=== PATIENT | male | born 1935 | race Caucasian/White ===

== ENCOUNTER 2019-12-21 10:31 | Observation (INO) | payer MEDICARE, BC ==
[2019-12-21 10:58] LABS: BASOPHILS % (AUTO) 0.4 %; EOSINOPHILS # (AUTO) 0.2 10^3/uL (0.0-0.7); HGB - HEMOGLOBIN 14.1 g/dL (14.0-18.0); LYMPHOCYTES # (AUTO) 0.9 10^3/uL (1.5-3.5); MEAN CORPUSCULAR HEMOGLOBIN 31.5 pg (27.0-31.0); MEAN CORPUSCULAR HGB CONC 35.1 g/dL (32.0-36.0); MEAN CORPUSCULAR VOLUME 89.9 fL (80.0-94.0); MEAN PLATELET VOLUME 10.4 fL (7.4-11.4); MONOCYTES # (AUTO) 0.5 10^3/uL (0.0-1.0); NEUTROPHILS # (AUTO) 5.8 10^3/uL (1.5-6.6); NEUTROPHILS % (AUTO) 78.3 %; PLT - PLATELET COUNT 171 10^3/uL (130-450); RED BLOOD COUNT 4.47 10^6/uL (4.70-6.10); RED CELL DISTRIBUTION WIDTH 12.8 % (12.0-15.0); WHITE BLOOD COUNT 7.4 x10^3/uL (4.8-10.8)
--- NOTE | 2019-12-21 11:07 | XRAY Report ---
Reason: Chest Pain Procedure Date: 12/21/2019 Accession Number: [id number] / [id number] Procedure: XR - Chest 1 View X-Ray CPT Code: 74815 Final Report FULL RESULT: EXAM: CHEST RADIOGRAPHY EXAM DATE: 12/21/2019 10:58 AM. CLINICAL HISTORY: Chest pain. Syncope. COMPARISON: 10/07/2015. TECHNIQUE: 1 view. FINDINGS: Lungs/Pleura: Small triangle hazy opacity medial right lung base, question mildly prominent epicardial fat pad than pulmonary opacity. Lungs are otherwise clear. No pleural effusion or pneumothorax. Mediastinum: Normal heart size. Similar mildly tortuous ectatic aorta. Bones: No acute osseous findings identified. IMPRESSION: 1. Probable mildly prominent right epicardial fat pad than small right basilar infiltrate. 2. Lungs otherwise clear. No heart failure. 3. Senescent aorta. RADIA
[2019-12-21 11:11] LABS: ALBUMIN 4.3 g/dL (3.2-5.5); ALBUMIN/GLOBULIN RATIO 1.7 (1.0-2.2); BILIRUBIN,TOTAL 0.8 mg/dL (0.2-1.0); CALCIUM 9.1 mg/dL (8.5-10.3); CREATININE 1.3 mg/dL (0.6-1.2); TOTAL PROTEIN 6.9 g/dL (6.7-8.2)
--- NOTE | 2019-12-21 11:44 | ED Physician Documentation ---
History of Present Illness - Stated complaint Stated Complaint: DIZZINESS - Chief complaint Chief Complaint: Cardiac - History obtained from History obtained from: Patient - History of Present Illness Timing: Today Pain level max: 0 Pain level now: 0 - Additonal information Additional information: 84-year-old male states that he was at home today when he felt lightheaded dizzy and had a syncopal event. He did not have any chest pain or shortness of breath. Nothing made it better or worse. No changes to his medications. He is on metoprolol and amlodipine. He states his normal heart rate is around. He feels normal now. No recent illnesses. He ate and drink normally this morning. Review of Systems Ten Systems: 10 systems reviewed and negative Constitutional: denies: Fever, Chills Throat: denies: Sore throat Cardiac: denies: Chest pain / pressure, Palpitations, Calf pain Respiratory: denies: Dyspnea, Cough, Hemoptysis, Wheezing : denies: Dysuria, Incontinent Skin: denies: Rash Musculoskeletal: denies: Neck pain, Back pain Neurologic: denies: Headache PD PAST MEDICAL HISTORY - Past Medical History Past Medical History: Yes Cardiovascular: Hypertension, High cholesterol, Coronary artery disease, Angina Respiratory: None Endocrine/Autoimmune: None GI: GERD : None HEENT: None Psych: None Musculoskeletal: Osteoarthritis Derm: Eczema - Past Surgical History General: Appendectomy HEENT: Tonsil/Adenoidectomy Derm: Skin cancer surgery - Present Medications Home Medications: Ambulatory Orders Medication Instructions Recorded Confirmed [place]-3 Fatty Acids [Fish Oil] 300 mg PO DAILY 09/16/16 09/16/16 Vitamin E 1,000 unit PO DAILY 09/16/16 09/16/16 - Allergies Allergies/Adverse Reactions: Allergies Allergy/AdvReac Type Severity Reaction Status Date / Time Penicillins Allergy Rash Verified 09/16/16 11:31 Sulfa (Sulfonamide Allergy Rash Verified 09/16/16 11:31 Antibiotics) - Social History Does the pt smoke?: No Smoking Status: Never smoker Does the pt drink ETOH?: Yes ETOH Use: Wine PD ED PE NORMAL - Vitals Vital signs reviewed: Yes - General General: Alert and oriented X 3, No acute distress, Well developed/nourished - HEENT HEENT: PERRL, Moist mucous membranes - Neck Neck: Supple, no meningeal sign - Cardiac Cardiac: RRR, Strong equal pulses - Respiratory Respiratory: No respiratory distress, Clear bilaterally - Abdomen Abdomen: Soft, Non tender, Non distended - Derm Derm: Warm and dry, No rash - Extremities Extremities: No edema - Neuro Neuro: Alert and oriented X 3 - Psych Psych: Normal mood, Normal affect Results - Vitals Vitals: Vital Signs - 24 hr 12/21/19 12/21/19 12/21/19 10:34 10:57 11:05 Temperature 36.9 C Heart Rate 56 L 44 L 44 L Respiratory 18 16 18 Rate Blood Pressure 163/55 H 174/68 H 96/69 O2 Saturation 98 100 100 12/21/19 11:07 Temperature Heart Rate 44 L Respiratory 16 Rate Blood Pressure 170/70 H O2 Saturation 100 Oxygen O2 Source Room air - EKG (time done) 1046 Rate: Rate (enter#) (48) Rhythm: Sinus bradycardia [place]: Normal Intervals: Normal [place] QRS: Normal Ischemia: Normal ST segments Compare to prior EKG: Old EKG unavailable - Labs Labs: Laboratory Tests 12/21/19 12/21/19 12/21/19 10:53 10:53 10:53 WBC 7.4 RBC 4.47 L Hgb 14.1 Hct 40.2 L MCV 89.9 MCH 31.5 H MCHC 35.1 RDW 12.8 Plt Count 171 MPV 10.4 Neut # (Auto) 5.8 Lymph # (Auto) 0.9 L [place] # (Auto) 0.5 Eos # (Auto) 0.2 Baso # (Auto) 0.0 Absolute Nucleated RBC 0.00 Nucleated RBC % 0.0 Sodium 134 L Potassium 4.2 Chloride 100 L Carbon Dioxide 28 Anion Gap 6.0 BUN 19 Creatinine 1.3 H Estimated GFR (MDRD) 52 L Glucose 110 H Calcium 9.1 Total Bilirubin 0.8 AST 30 ALT 37 Alkaline Phosphatase 66 Troponin I High Sens 4.1 Total Protein 6.9 Albumin 4.3 Globulin 2.6 Albumin/Globulin Ratio 1.7 Lipase 20 L - Rads (name of study) Chest x-ray Radiology: Prelim report reviewed, EMP read contemporaneously, See rad report (Probable mildly prominent right epicardial fat pad, than small right basilar infiltrate. Lungs otherwise clear. No heart failure. Senescent aorta.) PD MEDICAL DECISION MAKING - ED course Complexity details: reviewed results, re-evaluated patient, considered differential, d/w patient, d/w exchange underwriting consultant ED course: Patient with a syncopal event today. No chest pain. No shortness of breath. He is bradycardic, but this appears to be chronic for him and he is asymptomatic here. His heart rate will be in the 40s at rest in bed, but will increase to the upper 50s to 60 with standing. He has no dizziness or chest pain here. We will place him on telemetry for further care. He does see Dr. Diaz, cardiology at [facility]. No history of cardiac stents or bypasses. Discussed the case with Dr. Robertson, hospitalist who accepts This document was made in part using voice recognition software. While efforts are made to proofread this document, sound alike and grammatical errors may occur. Departure - Departure Disposition: ED Place in Observation Clinical Impression: Syncope Qualifiers: Syncope type: unspecified Qualified Code(s): R55 - Syncope and collapse Condition: Stable
[2019-12-21] MEDS ORDERED: ACETAMINOPHEN 325 MG TABLET PO PRN (12:16)
[2019-12-21] MEDS ORDERED: ONDANSETRON 4 MG/2 ML VIAL IVP PRN (12:16)
[2019-12-21] MEDS ORDERED: SODIUM CHLORIDE FLUSH 0.9% 10 ML SYRINGE IVP PRN (12:16)
[2019-12-21] MEDS ORDERED: hydrALAZINE INJ 20 MG/ML VIAL IVP PRN (12:21)
--- NOTE | 2019-12-21 12:23 | HISTORY & PHYSICAL EXAMINATION ---
Chief Complaint - Chief Complaint Chief Complaint: syncope History of Present Illness - Admitted From Admitted From:: ER - History of Present Illness HPI Comment/Other: This is a 84-year-old male with a PMH significant for Hypertension, High cholesterol, Coronary artery disease, Angina, who present ER complain of syncope. pt states that he was at home today when he felt lightheaded, dizziness, then he felt more dizziness. Finally he had a syncopal event. he denies injury. after he had syncope, he stood up slowly by himself and stay at the bed. He did not have any chest pain or shortness of breath, fever, chill, cough or medication changed recently. he denies hx of seizure. He report his HR is about middle of 50 normally. He just saw his clinical laboratory medical director about two weeks. He had ECHO and EKG done in his clinical laboratory medical director, "I am fine my clinical laboratory medical director told me." He feels normal now. He ate and drink normally in this morning. In [facility] lab, pt was found to have creatinine 1.3. pt is admitted for syncope. Discussed with pt about care goal. pt request DNR/DNI History - Past Medical History Cardiovascular: reports: Hypertension, High cholesterol, Coronary artery disease, Angina Respiratory: reports: None Endocrine/Autoimmune: reports: None GI: reports: GERD : reports: None HEENT: reports: None Psych: reports: None Musculoskeletal: reports: Osteoarthritis Derm: reports: Eczema MRSA Hx?: Yes - Past Surgical History General: reports: Appendectomy HEENT: reports: Tonsil/Adenoidectomy Derm: reports: Skin cancer surgery - Family & Social History Family History: Mother: , Father: , CAD Family History Comment/Other: pt report his father from CAD, his mother at 95 without significant medical issue. Social History Notes: pt denies hx of cigarette, alcohol and drug abuse issue. he is living with his at [facility]. Meds/Allgy - Home Medications Home Medications: Ambulatory Orders Medication Instructions Recorded Confirmed [place]-3 Fatty Acids [Fish Oil] 300 mg PO DAILY 09/16/16 09/16/16 Amlodipine Besylate [Norvasc] 2.5 mg PO DAILY 12/21/19 12/21/19 Aspirin 325 mg PO DAILY 12/21/19 12/21/19 Atorvastatin Calcium 40 mg PO DAILY 12/21/19 12/21/19 Brimonidine 0.1% Ophth Drops 1 drops RIGHTEYE BID 12/21/19 12/21/19 [Alphagan P 0.1% Ophth Drops] Latanoprost 0.005% Ophth Drops 1 drops RIGHTEYE DAILY 12/21/19 12/21/19 [Xalatan Ophth Drops] Metoprolol Succinate 12.5 mg PO DAILY 12/21/19 12/21/19 - Allergies Allergies/Adverse Reactions: Allergies Allergy/AdvReac Type Severity Reaction Status Date / Time Penicillins Allergy Rash Verified 09/16/16 11:31 Sulfa (Sulfonamide Allergy Rash Verified 09/16/16 11:31 Antibiotics) Review of Systems - Constitutional Constitutional: denies: Fatigue, Fever, Chills, Malaise, Weakness, Poor appetite, Diaphoresis, Night sweats - Eyes Eyes: denies: Pain, Irritation, Amaurosis, Blurred vision, Spots in vision, Field loss, Vision loss, Dipolpia - Ears, Nose & Throat Ears, Nose & Throat: denies: Ear pain, Hearing loss, Hearing aids, Tinnitus, Vertigo, Nasal pain, Nasal discharge, Nosebleeds, Nasal obstruction, Nasal congestion, Postnasal drainage, Sore throat, Hoarseness - Cardiovascular Cariovascular: reports: Syncope. denies: Irregular heart rate, Palpitations, Chest pain, Edema, Lightheadedness, Exertional dyspnea, Decr. exercise tolerance - Respiratory Respiratory: denies: Cough, Sputum production, Wheezing, Snoring, Hemoptysis, Orthopnea, SOB at rest, SOB with exertion - Gastrointestinal Gastrointestinal: denies: Abdominal pain, Abdominal distention, Constipation, Diarrhea, Change in bowel habits, Black stools, Bloody stools, Nausea, Bile emesis, Manny blood emesis, Coffee grounds emesis, Reflux/heartburn - Genitourinary Genitourinary: denies: Dysuria, Frequency, Urgency, Incontinence, Nocturia - Musculoskeletal Musculoskeletal: denies: Muscle pain, Back pain, Muscle aches, Stiffness, Limited range of motion, Muscle weakness, Gout - Integumentary Integumentary: denies: Rash, Pruritis, Dryness, Lumps, Acne, Pigment changes, Nail changes - Neurological Neurological: denies: General weakness, Focal weakness, Headache, Dizziness, Numbness, Memory problems, Pre-existing deficit, Abnormal gait - Psychiatric Psychiatric: denies: Depression, Anxiety, Suicidal, Delusions, Hallucinations, Homicidal - Endocrine Endocrine: denies: Polyuria, Polydypsia, Polyphagia, Intolerance to cold - Hematologic/Lymphatic Hematologic/Lymphatic: denies: Anemia, Bruising, Petechiae, Blood clots, Lymphadenopathy, Bleeding tendencies Exam - Vital Signs Vital Signs: Vital Signs x48h Temp Pulse Resp BP Pulse Ox 12/21/19 11:07 44 L 16 170/70 H 100 12/21/19 11:05 44 L 18 96/69 100 12/21/19 10:57 44 L 16 174/68 H 100 12/21/19 10:34 36.9 C 56 L 18 163/55 H 98 - Physical Exam General Appearance: positive: No acute distress, Alert. negative: Lethargic Eyes Bilateral: positive: Normal inspection, PERRL, No lid inflammation ENT: positive: ENT inspection nml, Pharynx nml, No signs of dehydration. negative: Purulent nasal drainage Neck: positive: Nml inspection, Thyroid nml, No JVD, Trachea midline. negative: Thyromegaly, Lymphadenopathy (R), Lymphadenopathy (L), Stiff neck, Tracheal deviation Respiratory: positive: Chest non-tender, No respiratory distress, Breath sounds nml. negative: Wheezes, Rales, Rhonchi Cardiovascular: positive: Regular rate & rhythm, No murmur, No gallop. negative: Irregularly irregular, Extrasystoles, Tachycardia, Bradycardia, JVD present, Systolic murmur, Diastolic murmur Peripheral Pulses: positive: 2+ Abdomen: positive: Non-tender, No organomegaly, Nml bowel sounds, No distention. negative: Tenderness, Guarding, Rebound Back: positive: Nml inspection. negative: CVA tenderness (R), CVA tenderness (L) Skin: positive: Color nml, No rash, Warm, Dry. negative: Cyanosis, Diaphoresis, Pallor Extremities: positive: Non-tender, Full ROM, Nml appearance. negative: Calf tenderness, Elizabeth's sign/cords Neurologic/Psychiatric: positive: Oriented x3, Motor nml, Sensation nml, Mood/affect nml. negative: Weakness, Sensory loss, Facial droop, Slurred/abnml speech, Depressed mood/affect Conclusion/Plan - Problem List (1) Syncope Conclusion/Plan: pt report syncope at home. also pt present sinus bradycardia at 48. pt took metoprolol. pt also present some dehydration and creatinine is 1.3, troponin is normal. plan: ECHO, tele monitor hydration, lab monitor Qualifiers: Syncope type: unspecified Qualified Code(s): R55 - Syncope and collapse (2) Sinus bradycardia Conclusion/Plan: pt report his HR is usually at middle of 50, today EKG reveals 48. will hold his metoprolol now and continue tele monitor (3) Dehydration Conclusion/Plan: pt clinic present dehydration, increased creatinine. Plan: hydration with IVF, and lab monitor (4) HTN (hypertension) Conclusion/Plan: pt's BP is stable, will reconcile home meds after confirmed (5) Hx of coronary artery disease Conclusion/Plan: pt denies chest pain, troponine is negative, EKG did not reveals ST variation. will reconcile home meds, tele monitor - Lab Results Fish Bones: 12/21/19 10:53 12/21/19 10:53 Core Measures - Anticipated LOS I expect patient to be DC'd or transferred within 96 hours.: Yes - DVT/VTE - Prophylaxis VTE/DVT Device ordered at admit?: Yes VTE/DVT Prophylaxis med ordered at admit?: Yes
[2019-12-21] MEDS ORDERED: SODIUM CHLORIDE 0.9% 1,000 ML IV SCH (14:00)
[2019-12-21] MEDS: SODIUM CHLORIDE FLUSH 0.9% 10 ML SYRINGE IVP SCH (16:41)
--- NOTE | 2019-12-21 17:43 | PHARMACY PROGRESS NOTE ---
- Best Possible Medication History Admit Date and Time: 12/21/19 1216 Processed by: Pharmacy Medication History completed: Yes Patient Interview: Completed Secondary Source(s): Written medication list, Pharmacy records (OUTPATIENT PHARMACY) As the person ultimately responsible for medication therapy, providers are able to order a medication from an existing home medication list in [facility] via the "Reconcile Routine" prior to Confirmation of that medication by merchandise support associate. Such practice is discouraged except when the physician, in their clinical judgment, deems that a medical need exists for a medication without regard to previous use.
[2019-12-21] MEDS: SODIUM CHLORIDE 0.9% 1,000 ML IV SCH (18:16)
[2019-12-22] MEDS: SODIUM CHLORIDE FLUSH 0.9% 10 ML SYRINGE IVP SCH ×2 (02:13→08:25)
[2019-12-22] MEDS: SODIUM CHLORIDE 0.9% 1,000 ML IV SCH (02:13)
[2019-12-22 08:51] LABS: BASOPHILS % (AUTO) 0.4 %; EOSINOPHILS # (AUTO) 0.2 10^3/uL (0.0-0.7); EOSINOPHILS % (AUTO) 2.5 %; LYMPHOCYTES # (AUTO) 1.1 10^3/uL (1.5-3.5); LYMPHOCYTES % (AUTO) 16.9 %; MEAN CORPUSCULAR HEMOGLOBIN 31.4 pg (27.0-31.0); MEAN CORPUSCULAR HGB CONC 34.8 g/dL (32.0-36.0); MEAN CORPUSCULAR VOLUME 90.3 fL (80.0-94.0); MEAN PLATELET VOLUME 10.3 fL (7.4-11.4); MONOCYTES # (AUTO) 0.4 10^3/uL (0.0-1.0); MONOCYTES % (AUTO) 6.6 %; NEUTROPHILS # (AUTO) 4.9 10^3/uL (1.5-6.6); NEUTROPHILS % (AUTO) 73.2 %; PLT - PLATELET COUNT 166 10^3/uL (130-450); RED BLOOD COUNT 4.14 10^6/uL (4.70-6.10); RED CELL DISTRIBUTION WIDTH 12.9 % (12.0-15.0); WHITE BLOOD COUNT 6.7 x10^3/uL (4.8-10.8)
[2019-12-22 08:59] LABS: CALCIUM 8.5 mg/dL (8.5-10.3); CREATININE 1.2 mg/dL (0.6-1.2); MAGNESIUM 1.9 mg/dL (1.7-2.8)
[2019-12-22] MEDS ORDERED: OMEGA-3 ACID ETHYL ESTERS 1 GM CAPSULE PO SCH (09:00)
[2019-12-22] MEDS ORDERED: ATORVASTATIN 40 MG TABLET PO SCH (09:00)
[2019-12-22] MEDS ORDERED: FAMOTIDINE 20 MG TABLET PO SCH (09:00)
[2019-12-22] MEDS ORDERED: ASPIRIN 325 MG TABLET PO SCH (09:00)
[2019-12-22] MEDS ORDERED: ENOXAPARIN 40 MG/0.4 ML SYRINGE SUBQ SCH (09:00)
[2019-12-22 12:15] VITALS: BP 134/72
--- NOTE | 2019-12-22 12:55 | Discharge Plan ---
Discharge Plan Problem Reviewed?: Yes Disposition: Home, Self Care Condition: Stable Diet: Cardiac Activity Restrictions: Activity as Tolerated Shower Restrictions: No (fall precaution) Instruction Topics: Syncope Health Concerns: syncope Plan of Treatment: you was found to have syncope, dehydration and sinus bradycardia. your home meds Metoprolol is hold for your bradycardia now. advise you keep hydration, stand up and walk slowly. advise you followup your resistance brazer in one to two week as out-pt. Care Goals: stabilization and improvement of your medical conditions Assessment: discussed with you about the care plan, you understood. Additional Instructions or Follow Up instructions: you may followup your PCP in one week, followup your resistance brazer in one to two week as out-pt. Should your symptoms return or worsen, you may present ER or call 911 for help. Follow-Up Care: [facility] - Cardiac No Smoking: If you smoke, Please STOP! Call for help. Follow-up with: Nacho Downs MD [Primary Care Provider] -
--- NOTE | 2019-12-22 13:13 | DISCHARGE SUMMARY ---
Discharge Summary Admit Date: 12/21/19 Discharge Date: 12/22/19 Discharging Provider: Javier Richmond Primary Care Provider: Condition at Discharge: Good Discharge Disposition: 01 Home, Self Care Discharge Facility Name: home - DIAGNOSES Admission Diagnoses: (1) Syncope (2) Sinus bradycardia (3) Dehydration (4) HTN (hypertension) (5) Hx of coronary artery disease Discharge Diagnoses with Status of Each Condition: (1) Syncope stable without syncope episode in hospital. pt has normal EF and mild aortic stenosis in ECHO. EKG reveals HR 48, sinus bradycardia. pt present dehydration and elevated creatinine. pt had hydration with IVF in hospital. pt's syncope is likely caused by combination of dehydration and sinus bradycardia. pt's home metoprolol is hold, advise pt followup his paver installer in 1-2 weeks, keep hydration, slowly stand up and slowly ambulate to prevention of fall. (2) Sinus bradycardia pt was found to have middle of 40 HR, pt's home Metoprolol is hold, advise pt followup his paver installer in 1-2 weeks to have further evaluation. (3) Dehydration resolved. (4) HTN (hypertension) stable (5) Hx of coronary artery disease stable, continue home meds, followup paver installer in 1-2 weeks - HPI History of Present Illness: This is a 84-year-old male with a PMH significant for Hypertension, High cholesterol, Coronary artery disease, Angina, who present ER complain of syncope. pt states that he was at home today when he felt lightheaded, dizziness, then he felt more dizziness. Finally he had a syncopal event. he denies injury. after he had syncope, he stood up slowly by himself and stay at the bed. He did not have any chest pain or shortness of breath, fever, chill, cough or medication changed recently. he denies hx of seizure. He report his HR is about middle of 50 normally. He just saw his paver installer about two weeks. He had ECHO and EKG done in his paver installer, "I am fine my paver installer told me." He feels normal now. He ate and drink normally in this morning. In [facility] lab, pt was found to have creatinine 1.3. pt is admitted for syncope. Discussed with pt about care goal. pt request DNR/DNI - HOSPITAL COURSE Hospital Course: pt was admitted for syncope. pt was also found to have bradycardia and dehydration. In hospital, pt's home metoprolol was hold. pt was given IVF for his dehydration. pt had ECHO reveals normal EF with mild aortic stenosis. Orthostatic hypotension is negative. pt's syncope is likely caused by combination of dehydration and sinus bradycardia. pt's home metoprolol is hold, advise pt followup his paver installer in 1-2 weeks, keep hydration, slowly stand up and slowly ambulate to prevention of fall. The detail hospital course is as the below: (1) Syncope stable without syncope episode in hospital. pt has normal EF and mild aortic stenosis in ECHO. EKG reveals HR 48, sinus bradycardia. pt present dehydration a nd elevated creatinine. pt had hydration with IVF in hospital. pt's syncope is likely caused by combination of dehydration and sinus bradycardia. pt's home metoprolol is hold, advise pt followup his paver installer in 1-2 weeks, keep hydration, slowly stand up and slowly ambulate to prevention of fall. (2) Sinus bradycardia pt was found to have middle of 40 HR, pt's home Metoprolol is hold, advise pt followup his paver installer in 1-2 weeks to have further evaluation. (3) Dehydration resolved. (4) HTN (hypertension) stable (5) Hx of coronary artery disease stable, continue home meds, followup paver installer in 1-2 weeks - ALLERGIES Allergies/Adverse Reactions: Allergies Allergy/AdvReac Type Severity Reaction Status Date / Time Penicillins Allergy Rash Verified 09/16/16 11:31 Sulfa (Sulfonamide Allergy Rash Verified 09/16/16 11:31 Antibiotics) - MEDICATIONS Home Medications: Ambulatory Orders Medication Instructions Recorded Confirmed [place]-3 Fatty Acids [Fish Oil] 1,000 mg PO DAILY 09/16/16 12/21/19 Amlodipine Besylate [Norvasc] 2.5 mg PO DAILY 12/21/19 12/21/19 Aspirin 325 mg PO DAILY 12/21/19 12/21/19 Atorvastatin Calcium 40 mg PO DAILY 12/21/19 12/21/19 Brimonidine 0.1% Ophth Drops 1 drops RIGHTEYE BID 12/21/19 12/21/19 [Alphagan P 0.1% Ophth Drops] Latanoprost 0.005% Ophth Drops 1 drops RIGHTEYE DAILY 12/21/19 12/21/19 [Xalatan Ophth Drops] - PHYSICAL EXAM AT DISCHARGE General Appearance: positive: No acute distress, Alert. negative: Lethargic Eyes Bilateral: positive: Normal inspection, PERRL, EOMI, No lid inflammation ENT: positive: ENT inspection nml, Pharynx nml, No signs of dehydration. negative: Purulent nasal drainage Neck: positive: Nml inspection, Thyroid nml, No JVD, Trachea midline. negative: Thyromegaly, Lymphadenopathy (R), Lymphadenopathy (L), Stiff neck, Tracheal deviation Respiratory: positive: Chest non-tender, No respiratory distress, Breath sounds nml. negative: Wheezes, Rales, Rhonchi Cardiovascular: positive: Regular rate & rhythm, No gallop, Bradycardia, Systolic murmur. negative: Irregularly irregular, Extrasystoles, Tachycardia, JVD present, Diastolic murmur Peripheral Pulses: positive: 2+ Abdomen: positive: Non-tender, No organomegaly, Nml bowel sounds, No distention. negative: Tenderness, Guarding, Rebound Back: positive: Nml inspection. negative: CVA tenderness (R), CVA tenderness (L) Skin: positive: Color nml, No rash, Warm, Dry. negative: Cyanosis, Diaphoresis, Pallor Extremities: positive: Non-tender, Full ROM, Nml appearance. negative: Calf tenderness, Elizabeth's sign/cords Neurologic/Psychiatric: positive: Oriented x3, Motor nml, Sensation nml, Mood/affect nml. negative: Weakness, Sensory loss, Facial droop, Slurred/abnml speech, Depressed mood/affect - LABS Result Diagrams: 12/22/19 08:45 12/22/19 08:45 - FOLLOW UP Follow Up: you was found to have syncope, dehydration and sinus bradycardia. your home meds Metoprolol is hold for your bradycardia now. advise you keep hydration, stand up and walk slowly. advise you followup your paver installer in one to two week as out-pt. you may followup your PCP in one week, followup your paver installer in one to two week as out-pt. Should your symptoms return or worsen, you may present ER or call 911 for help. - TIME SPENT Time Spent in Discharge (Minutes): 30
[2019-12-22] MEDS ORDERED: LATANOPROST 0.005% OPHTH DROPS RIGHTEYE SCH (21:00)
[2019-12-23] MEDS ORDERED: BRIMONIDINE 0.1% OPHTH DROPS 5 ML RIGHTEYE SCH (21:00)
== END 2019-12-22 14:01 | disposition home or self-care (01) ==
LOC: ED 10:31 → MS2 12:16 → MS3 14:44
PROVIDERS: ADMIT Nurse Practitioner Gerontology; ATTEND Nurse Practitioner Gerontology
DX: R55 Syncope and collapse (principal); R00.1 Bradycardia, unspecified; E86.0 Dehydration; I11.9 Hypertensive heart disease without heart failure; I25.10 Atherosclerotic heart disease of native coronary artery without angina pectoris; E78.00 Pure hypercholesterolemia, unspecified; I35.0 Nonrheumatic aortic (valve) stenosis
CPT/HCPCS: 36415; 71045; 80048; 80053; 83690; 83735; 84484; 85025; 93005; 93306; 96360; 96361; 99285; A9270; G0378

== ENCOUNTER 2019-12-30 08:43 | Outpatient (CLI) | payer MEDICARE, BC | END 2019-12-30 08:44 | disposition critical access hospital (66) | LOC: EMS 08:43 | PROVIDERS: ATTEND Surgery | DX: R42 Dizziness and giddiness (principal); R11.2 Nausea with vomiting, unspecified; R61 Generalized hyperhidrosis; R05 Cough | CPT/HCPCS: A0425; A0429 ==

== ENCOUNTER 2019-12-30 08:56 | Observation (INO) | payer MEDICARE, BC ==
--- NOTE | 2019-12-30 09:16 | ED Physician Documentation ---
PD HPI NVD - Stated complaint Stated Complaint: DIZZINESS - History obtained from History obtained from: Patient - History of Present Illness Timing - onset: How many hours ago (couple), Today Timing - details: Abrupt onset (He states he had had vertigo type dizziness after a lightheaded and apparent syncopal episode with a fall last week. He was seen in the emergency room and hospitalized for some bradycardia and syncope. He states after the fall he had had some positional vertigo that improved while he is in the hospital. His heart rate did not change at all but his blood pressure was solid and old records suggested chronic bradycardia. He was discharged without complications. He states he had some episodes of positional vertigo over the past week. This morning when he rolled over in bed he had onse t of significant nausea room spinning and vomiting. Any slight movement would cause emesis. He denied any new injury or fall or any headache. He had some decreased hearing in the right ear but no tinnitus or ringing. He had repetitive vomiting en route by EMS.) Associated symptoms: Dizzy. No: Fever, Near syncope / syncope, Dysuria Contributing factors: No: Sick contact, Bad food, Recent antibiotics Improved by: No: Eating Worsened by: Moving (He has significant dizziness and nausea with any movement of his head side to side but worse to the right.). No: Eating Similar symptoms before: No diagnosis Recently seen: Emergency Dept, Admitted (For syncopal episode and bradycardia. He states he did hit his head at that time and was dizzy after the syncopal event but then improved and was intermittently dizzy until today that was significantly dizzier.) Review of Systems Constitutional: denies: Fever, Chills, Myalgias Ears: reports: Loss of hearing (decreased on right ear). denies: Ear pain, Tinnitus/ringing Nose: reports: Congestion. denies: Rhinorrhea / runny nose, Sinus pressure / pain Throat: denies: Sore throat Respiratory: reports: Cough (has had occasional intermittent cough the past several days. No dyspnea.). denies: Dyspnea GI: reports: Nausea, Vomiting. denies: Diarrhea PD PAST MEDICAL HISTORY - Past Medical History Cardiovascular: Hypertension, High cholesterol, Coronary artery disease, Angina Respiratory: None Neuro: None Endocrine/Autoimmune: None GI: GERD : None HEENT: None Psych: None Musculoskeletal: Osteoarthritis Derm: Eczema - Past Surgical History General: Appendectomy HEENT: Tonsil/Adenoidectomy Derm: Skin cancer surgery - Present Medications Home Medications: Ambulatory Orders Medication Instructions Recorded Confirmed [place]-3 Fatty Acids [Fish Oil] 1,000 mg PO DAILY 09/16/16 12/30/19 Amlodipine Besylate [Norvasc] 2.5 mg PO DAILY 12/21/19 12/30/19 Aspirin 325 mg PO DAILY 12/21/19 12/30/19 Atorvastatin Calcium 40 mg PO DAILY 12/21/19 12/30/19 Brimonidine 0.1% Ophth Drops 1 drops RIGHTEYE BID 12/21/19 12/30/19 [Alphagan P 0.1% Ophth Drops] Latanoprost 0.005% Ophth Drops 1 drops RIGHTEYE DAILY 12/21/19 12/30/19 [Xalatan Ophth Drops] Ipratropium [place] 1 spray ANTONIO BID 12/30/19 12/30/19 Metoprolol Succinate 25 mg PO DAILY 12/30/19 12/30/19 Nitroglycerin [Nitrostat] 0.4 mg SL Q5MIN PRN 12/30/19 12/30/19 - Allergies Allergies/Adverse Reactions: Allergies Allergy/AdvReac Type Severity Reaction Status Date / Time Penicillins Allergy Rash Verified 12/30/19 09:19 Sulfa (Sulfonamide Allergy Rash Verified 12/30/19 09:19 Antibiotics) - Social History Does the pt smoke?: No Smoking Status: Never smoker Does the pt drink ETOH?: Yes PD ED PE NORMAL - Vitals Vital signs reviewed: Yes - General General: Alert and oriented X 3, Well developed/nourished, Other (He appears uncomfortable holding his head various steadily. He is has an emesis bag in his hand. He appears nauseated and hold his hand up to pause answering questions intermittently because of needing to having a wave of nausea dissipate. He is better if holding his head still. He has notable nystagmus mainly to the right. Pupils are equal and reactive otherwise.) - HEENT HEENT: Atraumatic, PERRL, Ears normal, Moist mucous membranes, Pharynx benign - Neck Neck: Supple, no meningeal sign, No adenopathy, No bruit - Cardiac Cardiac: RRR, Other (1 out of 6 murmur at the left sternal border radiating to the neck consistent with mild aortic stenosis from an echocardiogram last week.) - Respiratory Respiratory: Clear bilaterally - Abdomen Abdomen: Normal bowel sounds, Soft, Non tender, Non distended, No organomegaly, Other - Back Back: No CVA TTP - Derm Derm: Normal color, Warm and dry - Extremities Extremities: No deformity, Normal ROM s pain - Neuro Neuro: Alert and oriented X 3, stitcher utility 2-12 intact, No motor deficit, No sensory deficit, Normal speech, Other Eye Opening: To Voice (He prefers holding his eyes closed as that reduces the amount of dizziness.) Motor: Obeys Commands Verbal: Oriented GCS Score: 14 Results - Vitals Vitals: Vital Signs - 24 hr 12/30/19 12/30/19 12/30/19 09:06 10:20 12:00 Temperature 36.4 C L Heart Rate 51 L 49 L 74 Respiratory 14 14 21 Rate Blood Pressure 200/78 H 154/61 H 174/88 H O2 Saturation 99 100 96 12/30/19 13:30 Temperature Heart Rate 58 L Respiratory 16 Rate Blood Pressure 149/67 H O2 Saturation 96 Oxygen O2 Source Room air - Labs Labs: Laboratory Tests 12/30/19 12/30/19 12/30/19 09:52 09:52 09:52 WBC 9.6 RBC 4.40 L Hgb 13.7 L Hct 39.4 L MCV 89.5 MCH 31.1 H MCHC 34.8 RDW 12.7 Plt Count 193 MPV 10.3 Neut # (Auto) 7.6 H Lymph # (Auto) 1.2 L Williams # (Auto) 0.6 Eos # (Auto) 0.1 Baso # (Auto) 0.0 Absolute Nucleated RBC 0.00 Nucleated RBC % 0.0 ESR 4 Sodium 134 L Potassium 4.0 Chloride 99 L Carbon Dioxide 24 Anion Gap 11.0 BUN 17 Creatinine 1.2 Estimated GFR (MDRD) 57 L Glucose 149 H Calcium 8.8 Magnesium 2.0 Total Bilirubin 0.7 AST 32 ALT 33 Alkaline Phosphatase 62 Total Protein 6.7 Albumin 4.1 Globulin 2.6 Albumin/Globulin Ratio 1.6 Lipase 17 L - Rads (name of study) head CT Radiology: Prelim report reviewed (No acute abnormality.), See rad report chest xray Radiology: Prelim report reviewed, See rad report (no acute process) PD MEDICAL DECISION MAKING - ED course Complexity details: considered differential (He has positional vertigo that started with rolling over in bed and had started initially a week ago after a mild head injury. This sounds like labyrinthitis or positional vertigo. He has such significant symptoms now after several doses of medication I do not feel any maneuvering of the head is obtainable at this time. He is not having any nausea at rest or correction vomiting at rest but is still nauseated with even head movement to as slightest 15 to 20 degrees. I do not see him being able to ambulate. It does not sound cerebellar. He has no other focal deficits.), d/w patient Departure - Departure Disposition: ED Place in Observation Clinical Impression: Positional vertigo, Intractable nausea and vomiting Condition: Stable Record reviewed to determine appropriate education?: Yes Instructions: ED Vertigo Unspecified
[2019-12-30] MEDS ORDERED: SODIUM CHLORIDE 0.9% 1,000 ML IV ONE (09:18)
[2019-12-30] MEDS ORDERED: PROMETHAZINE INJ 12.5 MG in SODIUM CHLORIDE 0.9% 50 ML IV STA (09:19)
[2019-12-30] MEDS ORDERED: MECLIZINE 12.5 MG TABLET PO STA ×2 (09:19→13:32)
[2019-12-30] MEDS ORDERED: DEXAMETHASONE 10 MG/ML VIAL IVP STA (09:20)
[2019-12-30 09:57] LABS: BASOPHILS % (AUTO) 0.4 %; EOSINOPHILS # (AUTO) 0.1 10^3/uL (0.0-0.7); EOSINOPHILS % (AUTO) 1.3 %; HGB - HEMOGLOBIN 13.7 g/dL (14.0-18.0); LYMPHOCYTES # (AUTO) 1.2 10^3/uL (1.5-3.5); LYMPHOCYTES % (AUTO) 11.9 %; MEAN CORPUSCULAR HEMOGLOBIN 31.1 pg (27.0-31.0); MEAN CORPUSCULAR HGB CONC 34.8 g/dL (32.0-36.0); MEAN CORPUSCULAR VOLUME 89.5 fL (80.0-94.0); MEAN PLATELET VOLUME 10.3 fL (7.4-11.4); MONOCYTES # (AUTO) 0.6 10^3/uL (0.0-1.0); MONOCYTES % (AUTO) 6.6 %; NEUTROPHILS # (AUTO) 7.6 10^3/uL (1.5-6.6); NEUTROPHILS % (AUTO) 79.4 %; PLT - PLATELET COUNT 193 10^3/uL (130-450); RED CELL DISTRIBUTION WIDTH 12.7 % (12.0-15.0); WHITE BLOOD COUNT 9.6 x10^3/uL (4.8-10.8)
[2019-12-30 10:11] LABS: ALBUMIN 4.1 g/dL (3.2-5.5); ALBUMIN/GLOBULIN RATIO 1.6 (1.0-2.2); BILIRUBIN,TOTAL 0.7 mg/dL (0.2-1.0); CALCIUM 8.8 mg/dL (8.5-10.3); CREATININE 1.2 mg/dL (0.6-1.2); TOTAL PROTEIN 6.7 g/dL (6.7-8.2)
--- NOTE | 2019-12-30 10:34 | XRAY Report ---
Reason: chest pain Procedure Date: 12/30/2019 Accession Number: [id number] / [id number] Procedure: XR - Chest 1 View X-Ray CPT Code: 89990 Final Report FULL RESULT: EXAM: CHEST RADIOGRAPHY EXAM DATE: 12/30/2019 10:20 AM. CLINICAL HISTORY: Chest pain. COMPARISON: CHEST 1 VIEW 12/21/2019 10:41 AM. TECHNIQUE: 1 view. FINDINGS: Lungs/Pleura: No focal opacities evident. No pleural effusion. No pneumothorax. Mediastinum: The heart size within normal limits. There is mild aortic unfolding. Other: None. IMPRESSION: Normal single view chest. RADIA
--- NOTE | 2019-12-30 10:35 | CT Report ---
Reason: fall last week; dizzy/nausea episodic since Procedure Date: 12/30/2019 Accession Number: [id number] / [id number] Procedure: CT - HEAD WO CPT Code: Final Report FULL RESULT: EXAM: CT HEAD EXAM DATE: 12/30/2019 10:22 AM. CLINICAL HISTORY: Fall last week; dizzy/nausea episodic since. COMPARISON: None. TECHNIQUE: Multiaxial CT images were obtained from the foramen magnum to the vertex. Reformats: Sagittal and coronal. IV contrast: None. In accordance with CT protocol optimization, one or more of the following dose reduction techniques were utilized for this exam: automated exposure control, adjustment of mA and/or KV based on patient size, or use of iterative reconstructive technique. FINDINGS: Parenchyma: No intraparenchymal hemorrhage. No evidence of mass, midline shift, or CT findings of infarction. Brannon-white differentiation is distinct. Extraaxial Spaces: There is mild prominence of the ventricles and sulci in keeping with mild volume loss. No subdural or epidural collections identified. Ventricles: See above Sinuses and Orbits: Imaged paranasal sinuses, orbits, and mastoids show no significant abnormality. Bones: No evidence of fracture or calvarial defect. Other: None. IMPRESSION: 1. No acute intracranial hemorrhage. 2. Mild volume loss. RADIA
[2019-12-30] MEDS ORDERED: ONDANSETRON 4 MG/2 ML VIAL IVP STA (12:02)
[2019-12-30] MEDS ORDERED: diazePAM INJ 5 MG/ML SYRINGE IVP STA (13:32)
[2019-12-30] MEDS ORDERED: ACETAMINOPHEN 325 MG TABLET PO PRN (13:34)
[2019-12-30] MEDS ORDERED: SODIUM CHLORIDE FLUSH 0.9% 10 ML SYRINGE IVP PRN (13:34)
[2019-12-30] MEDS ORDERED: ONDANSETRON 4 MG/2 ML VIAL IVP PRN (13:34)
--- NOTE | 2019-12-30 15:00 | PHARMACY PROGRESS NOTE ---
- Best Possible Medication History Admit Date and Time: 12/30/19 3809 Processed by: Nursing Medication History completed: Yes As the person ultimately responsible for medication therapy, providers are able to order a medication from an existing home medication list in [facility] via the "Reconcile Routine" prior to Confirmation of that medication by customer support engineer. Such practice is discouraged except when the physician, in their clinical judgment, deems that a medical need exists for a medication without regard to previous use.
[2019-12-30] MEDS: hydrALAZINE INJ 20 MG/ML VIAL IVP SCH ×2 (15:48→21:52)
[2019-12-30] MEDS: D5.45NS W/20 MEQ KCL 1,000 ML IV SCH (15:49)
[2019-12-30] MEDS: PROCHLORPERAZINE 10 MG/2 ML VIAL IVP PRN (16:02)
[2019-12-30] MEDS: SODIUM CHLORIDE FLUSH 0.9% 10 ML SYRINGE IVP SCH (16:06)
--- NOTE | 2019-12-30 18:32 | HISTORY & PHYSICAL EXAMINATION ---
DATE OF SERVICE: 12/30/2019 Physician: Jacy Rivero MD HISTORY OF PRESENT ILLNESS: This is an 84-year-old white male, who was admitted here 2 weeks ago with syncope and was felt to be dehydrated. He needed IV hydration; he was orthostatic and medications were on hold for a while. The patient awoke today and after turning his head as he was getting out of bed, he developed sudden vertigo and had nausea and vomiting. With continued symptoms all morning, he presented to the Emergency Room. In the ER, he received Zofran, Compazine, meclizine and IV fluids and had some relief but as soon as he turned his head even slightly, he had continued vertigo-feeling and nausea and vomiting. He is being admitted for incessant nausea and vomiting. He has never had this symptom before. He has never had an Dionisio maneuver but knows what it is because his was prescribed it. There has been no fever. He has a mild cough. He has no shortness of breath. He states he was compliant with his medications on which he was discharged 2 weeks ago. There has been no travel. He has been following the nationwide isolation. He denies any diarrhea or fever. ALLERGIES: PENICILLIN AND SULFA. MEDICATIONS: 1. Ipratropium nasal spray. 2. [place]-3 1000 mg daily. 3. Xalatan eyedrops. 4. Brimodin eye drops. 5. Alphagan eyedrops. 6. Lipitor 40 mg daily. 7. Aspirin 325 daily. 8. Norvasc 2.5 mg daily. 9. Metoprolol succinate 25 mg daily. 10. Sublingual nitroglycerin p.r.n. PAST MEDICAL HISTORY: Hypertension, hyperlipidemia, CAD, osteoarthritis and skin cancer surgery. FAMILY HISTORY: No inherited diseases. SOCIAL HISTORY: The patient is a nonsmoker, who never smoked, drinks no alcohol. No recreational drug use history. He lives with his . REVIEW OF SYSTEMS: A comprehensive review of systems was performed and the pertinent positives are listed above; the rest are negative. PHYSICAL EXAMINATION: GENERAL: Elderly white male. He is in no distress. He is resting with head of bed elevated and eyes closed. VITAL SIGNS: Blood pressure 140s to 170s over 60-67, heart rate 50-70 in sinus rhythm, afebrile, room air saturation 96%. HEENT: Unremarkable except currently his eyes are closed. He has normal extraocular movements and there is no nystagmus at rest. NECK: Without JVD or carotid bruits. CHEST: Clear. HEART: Normal heart sounds. ABDOMEN: Soft, nontender. EXTREMITIES: No clubbing, cyanosis or edema. NEUROLOGIC: Grossly intact. LABORATORY DATA: Sodium 134, potassium 4.0, BUN 17, creatinine 1.2. Normal liver tests. Normal alkaline phosphatase. Normal lipase. White blood count 9.6, hemoglobin 13.7, platelet count 193. No INR was done. DIAGNOSTIC DATA: Head CT showed no hemorrhage and no gross stroke but prominent ventricles and sulci. No EKG was done but telemetry shows sinus rhythm. IMPRESSION/DIAGNOSES: 1. Persistent nausea and vomiting. 2. Vertigo. 3. History of hypertension. 4. History of coronary artery disease. 5. History of hyperlipidemia. PLAN: Place the patient in Observation status on telemetry. Continue IV fluids, start a clear liquid diet while he is nauseated and continue antiemetics. Proceed to an Dionisio maneuver, which would both diagnose benign positional vertigo and help treat any crystals in the ear canals to stop the vertigo. In the meantime, continue with antiemetics with Zofran alternating with Compazine and continue his meclizine. Continue with his blood pressure and cardiac medications. DEEP VENOUS THROMBOSIS PROPHYLAXIS: SCDs. CODE STATUS: FULL CODE. ATTESTATION: The patient is expected to be discharged or transferred to another facility within 96 hours: Yes. cc: Nacho Downs MD TD: 12/30/2019 17:51 [facility]
[2019-12-30] MEDS: BRIMONIDINE 0.1% OPHTH DROPS 5 ML RIGHTEYE SCH (21:49)
[2019-12-30] MEDS: MECLIZINE 12.5 MG TABLET PO SCH (21:53)
[2019-12-31] MEDS: SODIUM CHLORIDE FLUSH 0.9% 10 ML SYRINGE IVP SCH ×2 (01:14→10:48)
[2019-12-31] MEDS: PROCHLORPERAZINE 10 MG/2 ML VIAL IVP PRN (05:02)
[2019-12-31] MEDS: hydrALAZINE INJ 20 MG/ML VIAL IVP SCH (05:05)
[2019-12-31] MEDS: D5.45NS W/20 MEQ KCL 1,000 ML IV SCH (08:43)
[2019-12-31] MEDS ORDERED: METOPROLOL SUCCINATE 25 MG TABLET PO SCH ×2 (09:00→11:00)
[2019-12-31] MEDS ORDERED: LATANOPROST 0.005% OPHTH DROPS RIGHTEYE SCH (09:00)
[2019-12-31] MEDS ORDERED: amLODIPine 5 MG TABLET PO SCH (09:00)
--- NOTE | 2019-12-31 09:14 | Discharge Plan ---
Discharge Plan Problem Reviewed?: Yes Disposition: Home, Self Care Condition: Stable Prescriptions: Meclizine [Antivert] 12.5 mg PO BID PRN #10 tablet PRN Reason: Vertigo Diet: Low Sodium Activity Restrictions: Activity as Tolerated Shower Restrictions: No Driving Restrictions: Yes (Since you had fainting this month & vertigo this week, you need clearance ) Instruction Topics: ED Vertigo Unspecified Health Concerns: You were here in Observation status to manage vertigo that was causing significant nausea and vomiting. The Dionisio maneuver was performed which hopefully will help. You are being prescribed several tablets of Meclizine for vertigo/motion sickness. The prescription was sent electronically to your [place] pharmacy. If you need oral Zofran for recurrent vomiting, it needs to be prescribed by your PCP since it needs a "Prior Authorization" with your specific health insurance plan. Resume all your usual prehospital medications. Since you had fainting earlier this month and vertigo this week, you need clearance to resume driving a vehicle from your PCP. You should get an office appointment in the next 5-10 days. Plan of Treatment: As above. Care Goals: Improvement in symptoms and stabilization are the goals. Assessment: Patient understands and is agreeable with the plan. Additional Instructions or Follow Up instructions: If you have new or worsening symptoms, see your PCP for further management or come to the ER. No Smoking: If you smoke, Please STOP! Call for help. Follow-up with: Nacho Downs MD [Provider Admit Priv/Credential] -
[2019-12-31] MEDS: MECLIZINE 12.5 MG TABLET PO SCH (09:37)
[2019-12-31] MEDS: BRIMONIDINE 0.1% OPHTH DROPS 5 ML RIGHTEYE SCH (11:08)
[2019-12-31 12:44] VITALS: BP 129/51
--- NOTE | 2019-12-31 13:15 | DISCHARGE SUMMARY ---
Discharge Summary Admit Date: 12/30/19 Discharge Date: 12/31/19 Discharging Provider: Dr Jacy Rivero Primary Care Provider: Dr Nacho Downs Code Status: Attempt Resuscitation Condition at Discharge: Stable Discharge Disposition: 01 Home, Self Care - HPI History of Present Illness: This is an 84 y/o WM with a Hx of CAD, HTN, hyperlipidemia, DJD and skin cancer, admitted here just 2 weeks ago with syncope felt to be caused by dehydration. He presented now with complaints of sudden onset of severe vertigo when he awoke and turned his head, causing incessant N/V. There was no fever, cough, travel, change in meds, or any other neurologic symptoms. In the ER, a head CT showed no acute findings, he required iv Zofran, iv Compazine, Meclizine and iv fluids and still had nystagmus and severe nausea with head movement, and was placed in Observation status for symptom control and iv hydration. - HOSPITAL COURSE Hospital Course: 1) N/V The iv prn anti-emetics were continued until discharge. He was discharged with a prescription for several tablets of sublingual Zofran to use prn. 2) Vertigo The nystagmus had stopped by the time he presented to a [facility] Observation bed. He was hydrated and allowed to rest that evening and overnight. The following morning, I performed an Eppley maneuver which then helped ameliorate any symptoms caused by head turning, by the time of discharge. He was advised that he may not drive a vehicle until cleared to do so by his PCP, due to the recent syncope and current vertigo. 3) Hx CAD His meds were continued. 4) Hx Hyperlipidemia His meds were continued while here. - ALLERGIES Allergies/Adverse Reactions: Allergies Allergy/AdvReac Type Severity Reaction Status Date / Time Penicillins Allergy Rash Verified 12/30/19 09:19 Sulfa (Sulfonamide Allergy Rash Verified 12/30/19 09:19 Antibiotics) - MEDICATIONS Home Medications: Ambulatory Orders Medication Instructions Recorded Confirmed [place]-3 Fatty Acids [Fish Oil] 1,000 mg PO DAILY 09/16/16 12/30/19 Amlodipine Besylate [Norvasc] 2.5 mg PO DAILY 12/21/19 12/30/19 Aspirin 325 mg PO DAILY 12/21/19 12/30/19 Atorvastatin Calcium 40 mg PO DAILY 12/21/19 12/30/19 Brimonidine 0.1% Ophth Drops 1 drops RIGHTEYE BID 12/21/19 12/30/19 [Alphagan P 0.1% Ophth Drops] Latanoprost 0.005% Ophth Drops 1 drops RIGHTEYE DAILY 12/21/19 12/30/19 [Xalatan Ophth Drops] Ipratropium [place] 1 spray ANTONIO BID 12/30/19 12/30/19 Metoprolol Succinate 25 mg PO DAILY 12/30/19 12/30/19 Nitroglycerin [Nitrostat] 0.4 mg SL Q5MIN PRN 12/30/19 12/30/19 Meclizine [Antivert] 12.5 mg PO BID PRN #10 tablet 12/31/19 - PHYSICAL EXAM AT DISCHARGE General Appearance: positive: No acute distress, Alert Eyes Bilateral: positive: EOMI, Other (Lef upper eyelid mildly swollen, but normal cranial nerves III, , VII on exam) ENT: positive: ENT inspection nml, No signs of dehydration Neck: positive: Nml inspection, No JVD Respiratory: positive: No respiratory distress, Breath sounds nml Cardiovascular: positive: Regular rate & rhythm, No murmur Abdomen: positive: Non-tender, No distention Skin: positive: Color nml Extremities: positive: No pedal edema Neurologic/Psychiatric: positive: Oriented x3 (Cranial nerves II-VII grossly normal.) - LABS Result Diagrams: 12/30/19 09:52 12/30/19 09:52 - DIAGNOSTIC IMAGING Diagnostic Imaging Results: Final report reviewed - FOLLOW UP Follow Up: See PCP in approx. the next week for hospital follow up and for OK for resuming to drive. - TIME SPENT Time Spent in Discharge (Minutes): 30
== END 2019-12-31 13:15 | disposition home or self-care (01) ==
LOC: EDUNIT# → ED 08:56 → MS2 13:34
PROVIDERS: ADMIT Internal Medicine; ATTEND Internal Medicine
DX: R42 Dizziness and giddiness (principal); R11.2 Nausea with vomiting, unspecified; I10 Essential (primary) hypertension; E78.5 Hyperlipidemia, unspecified; I25.119 Atherosclerotic heart disease of native coronary artery with unspecified angina pectoris; M19.90 Unspecified osteoarthritis, unspecified site; R40.2412 Glasgow coma scale score 13-15, at arrival to emergency department; Z79.82 Long term (current) use of aspirin; Z85.828 Personal history of other malignant neoplasm of skin
CPT/HCPCS: 36415; 70450; 71045; 80053; 83690; 83735; 85025; 85651; 96361; 96365; 96375; 96376; 99284; 99285; A9270; G0378; J7040

== ENCOUNTER 2020-01-17 12:51 | Inpatient (IN) | payer MEDICARE, BC ==
--- NOTE | 2020-01-17 13:16 | ED Physician Documentation ---
History of Present Illness - Stated complaint Stated Complaint: DIZZINESS - Chief complaint Chief Complaint: General - History obtained from History obtained from: Patient (84-year-old male comes in today with chief complaint of continued dizziness. This is been ongoing for over a month now. He was admitted to the hospital here at [facility] for the same, discharge 12/29 he was told that he had positional vertigo. Dionisio maneuver was performed on him in the hospital here which seemed to help his dizziness, he was sent home with meclizine, told to take every 4 hours for several days to help with the dizziness. The patient states he never recovered completely from the dizziness. Two days he states he was clipping his fingernails when he his vision "closed in" on him, since then he has had a loss of the left field of vision in his left eye only, and his vision in his left eye is blurry at all times. This is new onset for him. He does also complain of having a headache above the right eye for the last 1 to 2 weeks. He did call his PCP today to follow-up after discharge the hospital, PCP advised him to come in to be seen and evaluated for the loss of vision in the left eye. Patient denies any other weakness, slurred speech. He does live at home with his who has dementia, and the patient does take care of her. So his health he is less concerned about her's.) PD PAST MEDICAL HISTORY - Past Medical History Cardiovascular: Hypertension, High cholesterol, Coronary artery disease, Angina Respiratory: None Neuro: None Endocrine/Autoimmune: None GI: GERD : None HEENT: None Psych: None Musculoskeletal: Osteoarthritis Derm: Eczema - Past Surgical History Past Surgical History: Yes General: Appendectomy HEENT: Tonsil/Adenoidectomy Derm: Skin cancer surgery - Present Medications Home Medications: Ambulatory Orders Medication Instructions Recorded Confirmed [place]-3 Fatty Acids [Fish Oil] 1,000 mg PO DAILY 09/16/16 01/17/20 Amlodipine Besylate [Norvasc] 2.5 mg PO DAILY 12/21/19 01/17/20 Aspirin 325 mg PO DAILY 12/21/19 01/17/20 Atorvastatin Calcium 40 mg PO QPM 12/21/19 01/17/20 Brimonidine 0.1% Ophth Drops 1 drops RIGHTEYE BID 12/21/19 01/17/20 [Alphagan P 0.1% Ophth Drops] Latanoprost 0.005% Ophth Drops 1 drops RIGHTEYE DAILY 12/21/19 01/17/20 [Xalatan Ophth Drops] Ipratropium [place] 1 spray ANTONIO BID 12/30/19 01/17/20 Metoprolol Succinate 12.5 mg PO DAILY 12/30/19 01/17/20 Nitroglycerin [Nitrostat] 0.4 mg SL Q5MIN PRN 12/30/19 01/17/20 Meclizine [Antivert] 12.5 mg PO BID PRN #10 tablet 12/31/19 01/17/20 - Allergies Allergies/Adverse Reactions: Allergies Allergy/AdvReac Type Severity Reaction Status Date / Time Penicillins Allergy Rash Verified 12/30/19 09:19 Sulfa (Sulfonamide Allergy Rash Verified 12/30/19 09:19 Antibiotics) - Social History Does the pt smoke?: No Smoking Status: Former smoker Does the pt drink ETOH?: Yes PD ED PE NORMAL - General General: Alert and oriented X 3, No acute distress - HEENT HEENT: Atraumatic, PERRL, EOMI, Pharynx benign - Neck Neck: No adenopathy - Cardiac Cardiac: RRR. No: No murmur - Respiratory Respiratory: No respiratory distress, Clear bilaterally - Abdomen Abdomen: Normal bowel sounds, Soft, Non tender - Derm Derm: Normal color, Warm and dry, No rash - Extremities Extremities: Normal ROM s pain, No edema - Neuro Neuro: Alert and oriented X 3 Eye Opening: Spontaneous Motor: Obeys Commands Verbal: Oriented GCS Score: 15 PD ED PE EXPANDED - HEENT HEENT: PERRL, EOMI (loss of OS, left hemisphere FOV; othwise vision is blurry.) Results - Vitals Vitals: Vital Signs - 24 hr 01/17/20 01/17/20 01/17/20 13:08 13:11 14:48 Temperature 36.8 C Heart Rate 78 80 65 Respiratory 16 16 11 L Rate Blood Pressure 161/73 H 155/75 H 155/75 H O2 Saturation 99 100 99 Oxygen O2 Source Room air - Labs Labs: Laboratory Tests 01/17/20 01/17/20 01/17/20 13:07 13:07 13:07 WBC 9.3 RBC 4.77 Hgb 14.9 Hct 42.6 MCV 89.3 MCH 31.2 H MCHC 35.0 RDW 12.3 Plt Count 222 MPV 10.2 Neut # (Auto) 7.2 H Lymph # (Auto) 1.1 L [place] # (Auto) 0.8 Eos # (Auto) 0.0 Baso # (Auto) 0.0 Absolute Nucleated RBC 0.00 Nucleated RBC % 0.0 ESR PT 13.9 H INR 1.2 Sodium 133 L Potassium 3.9 Chloride 99 L Carbon Dioxide 25 Anion Gap 9.0 BUN 26 H Creatinine 1.4 H Estimated GFR (MDRD) 48 L Glucose 144 H Calcium 9.3 Total Bilirubin 1.4 H AST 26 ALT 29 Alkaline Phosphatase 83 C-Reactive Protein Total Protein 7.6 Albumin 4.5 Globulin 3.1 Albumin/Globulin Ratio 1.5 Lipase 18 L 01/17/20 01/17/20 13:07 13:07 WBC RBC Hgb Hct MCV MCH MCHC RDW Plt Count MPV Neut # (Auto) Lymph # (Auto) [place] # (Auto) Eos # (Auto) Baso # (Auto) Absolute Nucleated RBC Nucleated RBC % ESR 9 PT INR Sodium Potassium Chloride Carbon Dioxide Anion Gap BUN Creatinine Estimated GFR (MDRD) Glucose Calcium Total Bilirubin AST ALT Alkaline Phosphatase C-Reactive Protein < 1.0 Total Protein Albumin Globulin Albumin/Globulin Ratio Lipase PD MEDICAL DECISION MAKING - ED course Complexity details: reviewed old records, reviewed results, re-evaluated patient, considered differential (Dehydration, hypotension, bradycardia, vertigo, CVA.), d/w patient, d/w fashion consultant sales (Dr. Rabago, [facility] neurology on- call) - Consults Consults: Discussed case with (Dr. Rabago , orthodontic technician [facility] Recommends observation overnight 24 hours here, obtain an MRI, MRA of the head and neck, and also carotid study. Once those results are back he will review them and decide the next course of action to take with us.), Request fashion consultant sales admit patient Departure - Departure Disposition: 66 [facility] DC/Xfer Clinical Impression: Stroke Qualifiers: CVA mechanism: unspecified Qualified Code(s): I63.9 - Cerebral infarction, unspecified Condition: Fair Discharge Date/Time: 01/17/20 16:54
[2020-01-17 13:17] LABS: BASOPHILS % (AUTO) 0.2 %; EOSINOPHILS % (AUTO) 0.4 %; HGB - HEMOGLOBIN 14.9 g/dL (14.0-18.0); LYMPHOCYTES # (AUTO) 1.1 10^3/uL (1.5-3.5); MEAN CORPUSCULAR HEMOGLOBIN 31.2 pg (27.0-31.0); MEAN CORPUSCULAR VOLUME 89.3 fL (80.0-94.0); MEAN PLATELET VOLUME 10.2 fL (7.4-11.4); MONOCYTES # (AUTO) 0.8 10^3/uL (0.0-1.0); MONOCYTES % (AUTO) 8.6 %; NEUTROPHILS # (AUTO) 7.2 10^3/uL (1.5-6.6); NEUTROPHILS % (AUTO) 78.3 %; PLT - PLATELET COUNT 222 10^3/uL (130-450); RED BLOOD COUNT 4.77 10^6/uL (4.70-6.10); RED CELL DISTRIBUTION WIDTH 12.3 % (12.0-15.0); WHITE BLOOD COUNT 9.3 x10^3/uL (4.8-10.8)
[2020-01-17 13:30] LABS: ALBUMIN 4.5 g/dL (3.2-5.5); ALBUMIN/GLOBULIN RATIO 1.5 (1.0-2.2); BILIRUBIN,TOTAL 1.4 mg/dL (0.2-1.0); CALCIUM 9.3 mg/dL (8.5-10.3); CREATININE 1.4 mg/dL (0.6-1.2); TOTAL PROTEIN 7.6 g/dL (6.7-8.2)
--- NOTE | 2020-01-17 14:18 | CT Report ---
Reason: loss of FOV, right side, new onset Procedure Date: 01/17/2020 Accession Number: [id number] / [id number] Procedure: CT - HEAD WO CPT Code: Final Report FULL RESULT: EXAM: CT HEAD EXAM DATE: 01/17/2020 01:40 PM. CLINICAL HISTORY: Loss of FOV, right side, new onset. COMPARISON: HEAD W/O 12/30/2019 10:02 AM. TECHNIQUE: Multiaxial CT images were obtained from the foramen magnum to the vertex. Reformats: Sagittal and coronal. IV contrast: None. In accordance with CT protocol optimization, one or more of the following dose reduction techniques were utilized for this exam: automated exposure control, adjustment of mA and/or KV based on patient size, or use of iterative reconstructive technique. FINDINGS: Parenchyma: Diffuse chronic microangiopathic white matter changes are redemonstrated. There is new broad hypodensity within the posterior and inferior right cerebellum which is consistent with a subacute to late subacute infarct. There is no definite hemorrhage at that site. There is new white matter hypodensity within the right occipital and parietal lobe surrounding medial cortex/gyri which demonstrate ribbonlike high density consistent with petechial type hemorrhage. This is most consistent with a subacute infarct with cortical petechial hemorrhage. Underlying neoplasm is less likely. No definite discrete/measurable hematoma demonstrated. There is no midline shift or other substantial mass-effect. Extraaxial Spaces: Normal for age. No subdural or epidural collections identified. Ventricles: The ventricles and cortical sulci are enlarged, consistent with age-related tissue loss, without significant change. Sinuses and orbits: Imaged paranasal sinuses, orbits, and mastoids show no significant abnormality. Bones: No evidence of fracture or calvarial defect. Other: None. IMPRESSION: New areas of hypodensity involving the right cerebellum and the right occipital/parietal regions most consistent with subacute infarcts with petechial type gyral/cortical hemorrhage in the occipitoparietal region. No midline shift or significant mass-effect. RADIA The critical result notification system was initiated by Dr. Garrick Arzate at 02:09 PM on 01/17/2020. The above critical result findings were discussed with Collin Rolon by Dr. Garrick Arzate at 02:13 PM on 01/17/2020.
[2020-01-17 14:35] LABS: INR 1.2 (0.8-1.2); PT - PROTHROMBIN TIME 13.9 secs (9.9-12.6)
[2020-01-17] MEDS ORDERED: SODIUM CHLORIDE FLUSH 0.9% 10 ML SYRINGE IVP PRN (16:22)
--- NOTE | 2020-01-17 16:33 | HISTORY & PHYSICAL EXAMINATION ---
Chief Complaint - Chief Complaint Chief Complaint: Dizziness and acute vision loss History of Present Illness - Admitted From Admitted From:: ED - History Obtained From Records Reviewed: ED History obtained from: patient Exam Limitations: none - History of Present Illness HPI Comment/Other: 84 yo male who comes in because he was getting dressed this morning and had acute dizziness where he fell over. He said all his limbs felt weak. Two days ago while at home he had acute left vision loss. He was seen roughly 2 weeks ago in the ED for dizziness and was noted to be hypotensive and his metoprolol was discontinued and he was noted to be dehydrated and went home and took some meclizine. He said after that visit he had vomiting. He lives with his who drove him to the hospital today for worsening dizziness. He denies any headaches. He has hx of CAD, but denies any SOB, cough, chest pain. He does have hx of glaucoma and macular degeneration. History - Past Medical History Cardiovascular: reports: Hypertension, High cholesterol, Coronary artery d isease, Angina Respiratory: reports: None Neuro: reports: None Endocrine/Autoimmune: reports: None GI: reports: GERD : reports: None HEENT: reports: None Psych: reports: None Musculoskeletal: reports: Osteoarthritis Derm: reports: Eczema MRSA Hx?: Yes - Past Surgical History General: reports: Appendectomy HEENT: reports: Tonsil/Adenoidectomy Derm: reports: Skin cancer surgery - Family & Social History Family History: Mother: , Father: , CAD Family History Comment/Other: pt report his father from CAD, his mother at 95 without significant medical issue. Living arrangement: At home Living Situation: With spouse/s.o. Social History Notes: pt denies hx of cigarette, alcohol and drug abuse issue. he is living with his at [facility]. - Substance History Use: Uses substance without health or social issues: NONE - POLST POLST Status: Full Code Meds/Allgy - Home Medications Home Medications: Ambulatory Orders Medication Instructions Recorded Confirmed [place]-3 Fatty Acids [Fish Oil] 1,000 mg PO DAILY 09/16/16 12/30/19 Amlodipine Besylate [Norvasc] 2.5 mg PO DAILY 12/21/19 12/30/19 Aspirin 325 mg PO DAILY 12/21/19 12/30/19 Atorvastatin Calcium 40 mg PO DAILY 12/21/19 12/30/19 Brimonidine 0.1% Ophth Drops 1 drops RIGHTEYE BID 12/21/19 12/30/19 [Alphagan P 0.1% Ophth Drops] Latanoprost 0.005% Ophth Drops 1 drops RIGHTEYE DAILY 12/21/19 12/30/19 [Xalatan Ophth Drops] Ipratropium [place] 1 spray ANTONIO BID 12/30/19 12/30/19 Metoprolol Succinate 25 mg PO DAILY 12/30/19 12/30/19 Nitroglycerin [Nitrostat] 0.4 mg SL Q5MIN PRN 12/30/19 12/30/19 Meclizine [Antivert] 12.5 mg PO BID PRN #10 tablet 12/31/19 - Allergies Allergies/Adverse Reactions: Allergies Allergy/AdvReac Type Severity Reaction Status Date / Time Penicillins Allergy Rash Verified 12/30/19 09:19 Sulfa (Sulfonamide Allergy Rash Verified 12/30/19 09:19 Antibiotics) Review of Systems - Eyes Eyes: reports: Vision loss - Neurological Neurological: reports: General weakness, Dizziness Exam - Vital Signs Vital Signs: Vital Signs x48h Temp Pulse Resp BP Pulse Ox 01/17/20 14:48 65 11 L 155/75 H 99 01/17/20 13:11 80 16 155/75 H 100 01/17/20 13:08 36.8 C 78 16 161/73 H 99 - Physical Exam General Appearance: positive: No acute distress Eyes Bilateral: positive: Normal inspection, PERRL, EOMI (Pt cannot see my finger on the left eye until my fingers get to midline) Neck: positive: Nml inspection Respiratory: positive: No respiratory distress Cardiovascular: positive: Regular rate & rhythm, Systolic murmur Abdomen: positive: Non-tender, Nml bowel sounds Skin: positive: Color nml Extremities: positive: Non-tender Neurologic/Psychiatric: positive: Oriented x3, Motor nml, Sensation nml, Mood/affect nml Conclusion/Plan - Problem List (1) Stroke Conclusion/Plan: Will get MRI/MRA head and neck Continue with aspirin and statin therapy Can discuss findings of MRI/MRA with neurology at [facility] when available Pt denies any history of atrial fibrillation Qualifiers: CVA mechanism: unspecified Qualified Code(s): I63.9 - Cerebral infarction, unspecified (2) Hyperlipidemia Conclusion/Plan: Pt is on atorvastatin 40 mg daily (3) Hx of coronary artery disease Conclusion/Plan: STable without angina Pt recently had his metoprolol stopped at ER visit for hypotension, he is only taking amlodipine 2.5 mg (4) Vision loss of left eye Conclusion/Plan: This is most likely related to his stroke. He does have hx of glaucoma and gets injections in his right eye for macular degeneration (5) HTN (hypertension) Conclusion/Plan: Pt recently had his metoprolol stopped at ER visit for hypotension, he is only taking amlodipine 2.5 mg - Lab Results Fish Bones: 01/17/20 13:07 01/17/20 13:07 - Diagnostic Imaging Results Diagnostic Imaging Results: positive: Final report reviewed Diagnostic Imaging Results Comments: CT head - New area hypodensity Right cerebellum and right occipital/parietal region consistent with subacute infarcts with petechial gyral hemorrhage in occipo-parietal region - EKG Results EKG Interpreted Independently: Yes
--- NOTE | 2020-01-17 17:09 | PHARMACY PROGRESS NOTE ---
- Best Possible Medication History Admit Date and Time: 01/17/20 6102 Processed by: Pharmacy Medication History completed: Yes Secondary Source(s): Previous admit records As the person ultimately responsible for medication therapy, providers are able to order a medication from an existing home medication list in [facility] via the "Reconcile Routine" prior to Confirmation of that medication by technical support coordinator. Such practice is discouraged except when the physician, in their clinical judgment, deems that a medical need exists for a medication without regard to previous use.
[2020-01-17] MEDS ORDERED: ASPIRIN 325 MG TABLET PO ONE (17:30)
[2020-01-17] MEDS ORDERED: ATORVASTATIN 40 MG TABLET PO ONE (17:30)
[2020-01-17] MEDS ORDERED: GADOBUTROL 10 MMOL/10 ML VIAL ONE (17:32)
[2020-01-17] MEDS: SODIUM CHLORIDE FLUSH 0.9% 10 ML SYRINGE IVP SCH (17:35)
[2020-01-17] MEDS ORDERED: GADOBUTROL 10 MMOL/10 ML VIAL IVP ONE (20:01)
--- NOTE | 2020-01-17 20:56 | MRI Report ---
Reason: CVA, left vision loss Procedure Date: 01/17/2020 Accession Number: [id number] / [id number] Procedure: MRI - Brain W/O CPT Code: Final Report FULL RESULT: EXAM: MRI BRAIN WITHOUT CONTRAST EXAM DATE: 01/17/2020 07:54 PM. CLINICAL HISTORY: 84-year-old male. CVA, left vision loss. COMPARISON: HEAD W/O 01/17/2020 1:31 PM. TECHNIQUE: Multiplanar, multisequence T1-weighted and fluid-sensitive MR sequences of the brain were performed. Sequences optimized for routine evaluation. Other: None. IV Contrast: None. FINDINGS: Brain Volume: Moderate diffuse cerebral volume loss with ex-vacuo dilatation of the ventricles and sulci. Parenchyma/Dura: As already suggested by the prior CT, this MR also demonstrates acute right parieto-occipital infarct, as evidenced by restricted diffusion and FLAIR signal abnormality, measuring maximally 5.1 x 2.9 cm (series 505 image 104). The infarct is less than 1 week old and is in the right CHAR FILTER OPERATOR HELPER distribution. As also evidenced by the prior CT, there is primarily cortical and subcortical hemorrhagic transformation of the infarct (for example series 801 images 12 through 17). Punctate foci of high DWI signal, likely also representing recent infarctions within the left parieto-occipital region as well as within the right cerebellar hemisphere (series 505 image 56). Chronic infarction right cerebellar hemisphere, right PICA territory as evidenced by encephalomalacia and gliosis, as well as associated chronic hemosiderin staining. Extensive T2/FLAIR hyperintense periventricular, deep, and subcortical white matter lesions within cerebral hemispheres bilaterally. Ventricles/Cisterns: Moderate ex-vacuo dilatation. No hydrocephalus. No abnormal extra-axial fluid collection or hemorrhage. Orbits: Status post right lens replacement surgery. The visualized orbits otherwise unremarkable. Sella [place]: The pituitary gland, cavernous sinuses, suprasellar cistern and optic chiasm are unremarkable. IAC: Symmetric and unremarkable. Vasculature: Abnormal T2 hyperintense signal involving the extracranial right vertebral artery, concurrently obtained MRA demonstrates occlusive/near occlusive dissection. Otherwiseunremarkable signal flow void is seen in the major arterial structures at the skull base. Sinuses: No acute appearing sinus disease. Bones: No focal pathologic appearing marrow signal changes. Other: None. IMPRESSION: 1. As already suggested by the prior CT, this MR also demonstrates acute right parieto-occipital infarct, measuring maximally 5.1 x 2.9 cm (series 505 image 104). The infarct is less than 1 week old and is in the right CHAR FILTER OPERATOR HELPER distribution. 2. As also evidenced by the prior CT, there is primarily cortical and subcortical hemorrhagic transformation of the infarct (for example series 801 images 12 through 17). 3. Punctate foci of high DWI signal, likely also representing recent infarctions, within the left parieto-occipital region as well as within the right cerebellar hemisphere (series 505 image 56). 4. Chronic infarction right cerebellar hemisphere, right PICA territory, as evidenced by encephalomalacia and gliosis, as well as associated chronic hemosiderin staining. 5. Extensive T2/FLAIR hyperintense periventricular, deep, and subcortical white matter lesions within cerebral hemispheres bilaterally. This likely represents sequela of chronic microangiopathy. 6. Moderate diffuse cerebral volume loss with ex-vacuo dilatation of the ventricles and sulci. 7. Abnormal T2 hyperintense signal involving the extracranial right vertebral artery, concurrently obtained MRA demonstrates occlusive/near occlusive dissection. RADIA The critical result notification system was initiated by Dr. Samir Smith at 08:45 PM on 01/17/2020. The above critical result findings were discussed with Dr. Collins by Dr. Samir Smith at 08:51 PM on 01/17/2020.
--- NOTE | 2020-01-17 20:59 | MRI Report ---
Reason: CVA, left vision loss Procedure Date: 01/17/2020 Accession Number: [id number] / [id number] Procedure: MRI - Angio Brain W/O (MRA) CPT Code: Final Report FULL RESULT: EXAM MRA BRAIN EXAM DATE: 01/17/2020 07:53 PM. CLINICAL HISTORY: 84-year-old male. CVA, left vision loss. COMPARISON: MRI brain and MRA head. Thin concurrently TECHNIQUE: Multiplanar, multisequence MRA sequences of the brain were performed. Other: None. Post-processing: Multiplanar 3D MIP reconstructions. IV Contrast: None. FINDINGS: RIGHT Internal Carotid (ICA): No aneurysm, stenosis or anomaly. Middle Cerebral (MCA): No aneurysm, stenosis or anomaly. Anterior Cerebral (FRANTZ): No aneurysm, stenosis or anomaly. Posterior Cerebral (MATERIALS PLANNER/PRODUCTION PLANNER): No aneurysm, stenosis or anomaly. Posterior Communicating (P-COM): Not visualized, aplastic versus markedly hypoplastic Vertebral: No flow related enhancement, concerning for upstream occlusion/severe stenosis, please see separately dictated MRA neck. LEFT Internal Carotid (ICA): No aneurysm, stenosis or anomaly. Middle Cerebral (MCA): No aneurysm, stenosis or anomaly. Anterior Cerebral (FRANTZ): No aneurysm, stenosis or anomaly. Posterior Cerebral (MATERIALS PLANNER/PRODUCTION PLANNER): No aneurysm, stenosis or anomaly. Posterior Communicating (P-COM): Not visualized, aplastic versus markedly hypoplastic Vertebral: No aneurysm, stenosis or anomaly in the visualized upper vertebral artery. MIDLINE Anterior Communicating (A-COM): No aneurysm, stenosis or anomaly. Basilar Artery:No aneurysm, stenosis or anomaly. Other: None. IMPRESSION: 1. No flow related enhancement, concerning for upstream occlusion/severe stenosis, please see separately dictated MRA neck. 2. Otherwise unremarkable MRA of the head. RADIA
[2020-01-17] MEDS: HEPARIN 5,000 UNIT/ML VIAL SUBQ SCH (21:02)
[2020-01-17] MEDS: FAMOTIDINE 20 MG TABLET PO SCH (21:02)
--- NOTE | 2020-01-17 21:03 | MRI Report ---
Reason: Stroke symptoms, acute vision loss, dizziness Procedure Date: 01/17/2020 Accession Number: [id number] / [id number] Procedure: MRI - Angio Neck W/WO (MRA) CPT Code: Final Report FULL RESULT: EXAM: MR ANGIOGRAM NECK EXAM DATE: 01/17/2020 07:57 PM. CLINICAL HISTORY: Stroke symptoms, acute vision loss, dizziness. COMPARISON: None. TECHNIQUE: Multiplanar, multisequence MRA sequences of the neck were performed. Other: None. Post-processing: Multiplanar 3D MIP reconstructions. IV Contrast: 10 mL GADAVIST. Evaluation of arterial stenosis is based on a NASCET method of measurement. FINDINGS: RIGHT Common Carotid: Patent. No dissection or significant stenosis. Internal Carotid: Patent. No dissection or significant stenosis. External Carotid: Patent. No dissection or significant stenosis. Vertebral: Only minimal, incomplete segmental enhancement seen involving the extracranial right vertebral artery. Abnormal T1 hyperintensity is seen on T1 fat-saturated images (for example series 501 image 36), therefore most concerning for occlusive/nearly occlusive dissection of the right vertebral artery. LEFT Common Carotid: Patent. No dissection or significant stenosis. Internal Carotid: Patent. No dissection or significant stenosis. External Carotid: Patent. No dissection or significant stenosis. Vertebral: Patent. No dissection or significant stenosis. Intracranial Circulation: Concurrently obtained MRA headache dictated simply. Other: The soft tissues, bones, and lung apices are unremarkable. IMPRESSION: 1. Only minimal, incomplete segmental enhancement seen involving the extracranial right vertebral artery. Abnormal T1 hyperintensity is seen on T1 fat-saturated images (for example series 501 image 36), therefore most concerning for occlusive/nearly occlusive dissection of the right vertebral artery. 2. Otherwise unremarkable MRA of the neck. MRA of the head is dictated separately. RADIA The critical result notification system was initiated by Dr. Samir Smith at 08:45 PM on 01/17/2020. The above critical result findings were discussed with Nilesh Collins by Dr. Samir Smith at 08:51 PM on 01/17/2020.
[2020-01-18] MEDS: SODIUM CHLORIDE FLUSH 0.9% 10 ML SYRINGE IVP SCH ×3 (00:10→18:05)
[2020-01-18] MEDS ORDERED: MECLIZINE 12.5 MG TABLET PO PRN (08:31)
[2020-01-18] MEDS ORDERED: NITROGLYCERIN SL 0.4 MG TABLET SL PRN (08:31)
[2020-01-18 08:37] LABS: BASOPHILS % (AUTO) 0.3 %; EOSINOPHILS # (AUTO) 0.1 10^3/uL (0.0-0.7); HGB - HEMOGLOBIN 13.3 g/dL (14.0-18.0); LYMPHOCYTES # (AUTO) 1.3 10^3/uL (1.5-3.5); LYMPHOCYTES % (AUTO) 20.1 %; MEAN CORPUSCULAR HEMOGLOBIN 31.5 pg (27.0-31.0); MEAN CORPUSCULAR HGB CONC 34.9 g/dL (32.0-36.0); MEAN CORPUSCULAR VOLUME 90.3 fL (80.0-94.0); MEAN PLATELET VOLUME 9.7 fL (7.4-11.4); MONOCYTES # (AUTO) 0.6 10^3/uL (0.0-1.0); MONOCYTES % (AUTO) 8.7 %; NEUTROPHILS # (AUTO) 4.4 10^3/uL (1.5-6.6); NEUTROPHILS % (AUTO) 68.6 %; PLT - PLATELET COUNT 175 10^3/uL (130-450); RED BLOOD COUNT 4.22 10^6/uL (4.70-6.10); RED CELL DISTRIBUTION WIDTH 12.4 % (12.0-15.0); WHITE BLOOD COUNT 6.4 x10^3/uL (4.8-10.8)
[2020-01-18 08:46] LABS: CALCIUM 8.3 mg/dL (8.5-10.3); CREATININE 1.4 mg/dL (0.6-1.2)
[2020-01-18] MEDS ORDERED: ASPIRIN 325 MG TABLET PO SCH (09:00)
[2020-01-18] MEDS ORDERED: amLODIPine 5 MG TABLET PO SCH (09:00)
[2020-01-18] MEDS: BRIMONIDINE 0.1% OPHTH DROPS 5 ML RIGHTEYE SCH ×2 (09:08→20:45)
[2020-01-18] MEDS: FAMOTIDINE 20 MG TABLET PO SCH ×2 (09:09→20:46)
[2020-01-18] MEDS: HEPARIN 5,000 UNIT/ML VIAL SUBQ SCH ×2 (09:09→20:39)
[2020-01-18] MEDS: LATANOPROST 0.005% OPHTH DROPS RIGHTEYE SCH (09:09)
[2020-01-18] MEDS: SODIUM CHLORIDE 0.9% 1,000 ML IV SCH ×2 (09:10→22:22)
[2020-01-18] MEDS: polyethylene glycoL 3350 17 GM PACKET PO SCH (09:10)
[2020-01-18] MEDS: OMEGA-3 ACID ETHYL ESTERS 1 GM CAPSULE PO SCH (10:30)
[2020-01-18] MEDS: IPRATROPIUM BROMIDE NAS SCH ×2 (10:30→20:46)
--- NOTE | 2020-01-18 12:38 | PROVIDER PROGRESS NOTE ---
Subjective - Prog Note Date Prog Note Date: 01/18/20 - Subjective Pt reports feeling: Improved Subjective: pt report his left vision is slight better than yesterday. he denies other neurological focal deficit. he denies headache, weakness, speech problem or swallowing problem. I called [place] neurologist Dr Rabago. he review pt's image studies including MRI and MRA of brain and neck. he recommended to hold Aspirin for one week because of pt's combination of infarction and hemorrhagic stroke, then re-image again and consult them. Current Medications - Current Medications Current Medications: Active Medications Atorvastatin Calcium (Lipitor) 80 mg PO QPM [facility] Brimonidine Tartrate (Alphagan P 0.1% Ophth Drops) 1 drops RIGHTEYE BID [facility] Last Admin: 01/18/20 09:08 Dose: 1 drops Famotidine (Pepcid) 10 mg PO BID [facility] Last Admin: 01/18/20 09:09 Dose: 10 mg Heparin Sodium (Porcine) () 5,000 unit SUBQ BID [facility] Last Admin: 01/18/20 09:09 Dose: 5,000 unit Sodium Chloride (Normal Saline 0.9%) 1,000 mls @ 75 mls/hr IV .[id number] [facility] Last Admin: 01/18/20 09:10 Dose: 75 mls/hr Latanoprost (Xalatan Ophth Drops) 1 drops RIGHTEYE DAILY [facility] Last Admin: 01/18/20 09:09 Dose: 1 drops Meclizine HCl (Antivert) 12.5 mg PO BID PRN PRN Reason: Vertigo Nitroglycerin (Nitrostat) 0.4 mg SL Q5MIN PRN PRN Reason: Chest Pain Patient Own Med ( Ipratropium [place] [Ipratropium [place] ] 1 [place]) 1 spray ANTONIO BID [facility] Last Admin: 01/18/20 10:30 Dose: Not Given [id number] Ethyl Esters (Lovaza) 1 gm PO DAILY [facility] Last Admin: 01/18/20 10:30 Dose: 1 gm Polyethylene Glycol (Miralax) 17 gm PO DAILY [facility] Last Admin: 01/18/20 09:10 Dose: 17 gm Sodium Chloride (Normal Saline Flush 0.9%) 10 ml IVP PRN PRN PRN Reason: NEEDED PER PROVIDER ORDERS Sodium Chloride (Normal Saline Flush 0.9%) 10 ml IVP 0100,0900,1700 [facility] Last Admin: 01/18/20 10:30 Dose: 10 ml [place]-3 Fatty Acids [Fish Oil] 1,000 mg PO DAILY 09/16/16 Amlodipine Besylate [Norvasc] 2.5 mg PO DAILY 12/21/19 Aspirin 325 mg PO DAILY 12/21/19 Atorvastatin Calcium 40 mg PO QPM 12/21/19 Brimonidine 0.1% Ophth Drops [Alphagan P 0.1% Ophth Drops] 1 drops RIGHTEYE BID 12/21/19 Latanoprost 0.005% Ophth Drops [Xalatan Ophth Drops] 1 drops RIGHTEYE DAILY 12/21/19 Ipratropium [place] 1 spray ANOTNIO BID 12/30/19 Metoprolol Succinate 12.5 mg PO DAILY 12/30/19 Nitroglycerin [Nitrostat] 0.4 mg SL Q5MIN PRN 12/30/19 Objective - Vital Signs/Intake & Output Reviewed Vital Signs: Yes Vital Signs: Vital Signs x48h Temp Pulse Pulse Resp BP Pulse Ox 01/18/20 11:02 36.6 C 60 16 96 01/18/20 07:47 36.6 C 54 L 16 123/66 97 01/18/20 04:58 36.7 C 60 16 146/62 H 99 Intake & Output: Intake & Output 01/15/20 01/16/20 01/17/20 01/18/20 23:59 23:59 23:59 23:59 Intake Total 200 360 Balance 200 360 - Objective General Appearance: positive: No acute distress, Alert. negative: Lethargic Eyes Bilateral: positive: Normal inspection, PERRL, No lid inflammation Eyes: OD Other (left eye vision field reduced left lower partial) ENT: positive: ENT inspection nml, Pharynx nml, No signs of dehydration. negative: Dry mucous membranes Neck: positive: Nml inspection, Thyroid nml, No JVD, Trachea midline. negative: Thyromegaly, Lymphadenopathy (R), Lymphadenopathy (L), Stiff neck, Tracheal deviation Respiratory: positive: Chest non-tender, No respiratory distress, Breath sounds nml. negative: Wheezes, Rales, Rhonchi Cardiovascular: positive: Regular rate & rhythm, No murmur, No gallop. negative: Irregularly irregular, Extrasystoles, Tachycardia, Bradycardia, JVD present, Systolic murmur, Diastolic murmur Peripheral Pulses: 2+ Radial (R), 2+ Radial (L) Abdomen: positive: Non-tender, No organomegaly, Nml bowel sounds, No distention. negative: Tenderness, Guarding, Rebound Back: positive: Nml inspection. negative: CVA tenderness (R), CVA tenderness (L) Skin: positive: Color nml, No rash, Warm, Dry. negative: Cyanosis, Diaphoresis, Pallor Extremities: positive: Non-tender, Full ROM, Nml appearance. negative: Calf tenderness, Elizabeth's sign/cords Neurologic/Psychiatric: positive: Oriented x3, Motor nml, Sensation nml, Mood/affect nml. negative: Weakness, Sensory loss, Facial droop, Slurred/abnml speech, Depressed mood/affect - Lab Results Fish Bones: 01/18/20 08:20 01/18/20 08:20 Other Labs: Lab Results x24hrs 01/18/20 01/18/20 01/17/20 Range/Units 08:20 08:20 13:07 WBC 6.4 (4.8-10.8) x10^3/uL RBC 4.22 L (4.70-6.10) 10^6/uL Hgb 13.3 L (14.0-18.0) g/dL Hct 38.1 L (42.0-52.0) % MCV 90.3 (80.0-94.0) fL MCH 31.5 H (27.0-31.0) pg MCHC 34.9 (32.0-36.0) g/dL RDW 12.4 (12.0-15.0) % Plt Count 175 (130-450) 10^3/uL MPV 9.7 (7.4-11.4) fL Neut # (Auto) 4.4 (1.5-6.6) 10^3/uL Lymph # (Auto) 1.3 L (1.5-3.5) 10^3/uL [place] # (Auto) 0.6 (0.0-1.0) 10^3/uL Eos # (Auto) 0.1 (0.0-0.7) 10^3/uL Baso # (Auto) 0.0 (0.0-0.1) 10^3/uL Absolute Nucleated RBC 0.00 x10^3/uL Nucleated RBC % 0.0 /100WBC ESR (0-20) mm/Hr PT (9.9-12.6) secs INR (0.8-1.2) Sodium 134 L (135-145) mmol/L Potassium 3.8 (3.5-5.0) mmol/L Chloride 101 (101-111) mmol/L Carbon Dioxide 26 (21-32) mmol/L Anion Gap 7.0 (6-13) BUN 26 H (6-20) mg/dL Creatinine 1.4 H (0.6-1.2) mg/dL Estimated GFR (MDRD) 48 L (>89) Glucose 142 H (70-100) mg/dL Calcium 8.3 L (8.5-10.3) mg/dL Total Bilirubin (0.2-1.0) mg/dL AST (10-42) IU/L ALT (10-60) IU/L Alkaline Phosphatase (42-121) IU/L C-Reactive Protein < 1.0 (0-1.0) mg/dL Total Protein (6.7-8.2) g/dL Albumin (3.2-5.5) g/dL Globulin (2.1-4.2) g/dL Albumin/Globulin Ratio (1.0-2.2) Lipase (22-51) U/L 01/17/20 01/17/20 01/17/20 Range/Units 13:07 13:07 13:07 WBC (4.8-10.8) x10^3/uL RBC (4.70-6.10) 10^6/uL Hgb (14.0-18.0) g/dL Hct (42.0-52.0) % MCV (80.0-94.0) fL MCH (27.0-31.0) pg MCHC (32.0-36.0) g/dL RDW (12.0-15.0) % Plt Count (130-450) 10^3/uL MPV (7.4-11.4) fL Neut # (Auto) (1.5-6.6) 10^3/uL Lymph # (Auto) (1.5-3.5) 10^3/uL [place] # (Auto) (0.0-1.0) 10^3/uL Eos # (Auto) (0.0-0.7) 10^3/uL Baso # (Auto) (0.0-0.1) 10^3/uL Absolute Nucleated RBC x10^3/uL Nucleated RBC % /100WBC ESR 9 (0-20) mm/Hr PT 13.9 H (9.9-12.6) secs INR 1.2 (0.8-1.2) Sodium 133 L (135-145) mmol/L Potassium 3.9 (3.5-5.0) mmol/L Chloride 99 L (101-111) mmol/L Carbon Dioxide 25 (21-32) mmol/L Anion Gap 9.0 (6-13) BUN 26 H (6-20) mg/dL Creatinine 1.4 H (0.6-1.2) mg/dL Estimated GFR (MDRD) 48 L (>89) Glucose 144 H (70-100) mg/dL Calcium 9.3 (8.5-10.3) mg/dL Total Bilirubin 1.4 H (0.2-1.0) mg/dL AST 26 (10-42) IU/L ALT 29 (10-60) IU/L Alkaline Phosphatase 83 (42-121) IU/L C-Reactive Protein (0-1.0) mg/dL Total Protein 7.6 (6.7-8.2) g/dL Albumin 4.5 (3.2-5.5) g/dL Globulin 3.1 (2.1-4.2) g/dL Albumin/Globulin Ratio 1.5 (1.0-2.2) Lipase 18 L (22-51) U/L 04/15/20 Range/Units 13:07 WBC 9.3 (4.8-10.8) x10^3/uL RBC 4.77 (4.70-6.10) 10^6/uL Hgb 14.9 (14.0-18.0) g/dL Hct 42.6 (42.0-52.0) % MCV 89.3 (80.0-94.0) fL MCH 31.2 H (27.0-31.0) pg MCHC 35.0 (32.0-36.0) g/dL RDW 12.3 (12.0-15.0) % Plt Count 222 (130-450) 10^3/uL MPV 10.2 (7.4-11.4) fL Neut # (Auto) 7.2 H (1.5-6.6) 10^3/uL Lymph # (Auto) 1.1 L (1.5-3.5) 10^3/uL [place] # (Auto) 0.8 (0.0-1.0) 10^3/uL Eos # (Auto) 0.0 (0.0-0.7) 10^3/uL Baso # (Auto) 0.0 (0.0-0.1) 10^3/uL Absolute Nucleated RBC 0.00 x10^3/uL Nucleated RBC % 0.0 /100WBC ESR (0-20) mm/Hr PT (9.9-12.6) secs INR (0.8-1.2) Sodium (135-145) mmol/L Potassium (3.5-5.0) mmol/L Chloride (101-111) mmol/L Carbon Dioxide (21-32) mmol/L Anion Gap (6-13) BUN (6-20) mg/dL Creatinine (0.6-1.2) mg/dL Estimated GFR (MDRD) (>89) Glucose (70-100) mg/dL Calcium (8.5-10.3) mg/dL Total Bilirubin (0.2-1.0) mg/dL AST (10-42) IU/L ALT (10-60) IU/L Alkaline Phosphatase (42-121) IU/L C-Reactive Protein (0-1.0) mg/dL Total Protein (6.7-8.2) g/dL Albumin (3.2-5.5) g/dL Globulin (2.1-4.2) g/dL Albumin/Globulin Ratio (1.0-2.2) Lipase (22-51) U/L ABX Reporting Has patient been on IV antibiotics over the past 48 hours?: No Sepsis Event Note (H) - Evaluation Current Stage of Sepsis: Ruled out Assessment/Plan - Problem List (1) Stroke Impression: MRI and CT reveals similar acute right brain infarct and hemorrhagic transformation of the infarct. consulted with Dr. Rabago in [place]. Dr. Rabago recommend hold Aspirin for one week, then has another image study. 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 This is most likely related to his stroke. He does have hx of glaucoma and gets injections in his right eye for macular degeneration, continue home glaucoma meds (5) HTN (hypertension) Conclusion/Plan: stable. (6) CKD pt's creatinine is 1.4, stable, gently IVF and lab monitor Qualifiers: CVA mechanism: unspecified Qualified Code(s): I63.9 - Cerebral infarction, unspecified
[2020-01-18] MEDS ORDERED: ATORVASTATIN 40 MG TABLET PO SCH ×2 (21:00)
[2020-01-19] MEDS: SODIUM CHLORIDE FLUSH 0.9% 10 ML SYRINGE IVP SCH ×2 (02:50→09:00)
[2020-01-19 05:22] LABS: BASOPHILS % (AUTO) 0.5 %; EOSINOPHILS # (AUTO) 0.2 10^3/uL (0.0-0.7); EOSINOPHILS % (AUTO) 3.6 %; HGB - HEMOGLOBIN 12.5 g/dL (14.0-18.0); LYMPHOCYTES # (AUTO) 1.3 10^3/uL (1.5-3.5); MEAN CORPUSCULAR HEMOGLOBIN 31.3 pg (27.0-31.0); MEAN CORPUSCULAR HGB CONC 34.7 g/dL (32.0-36.0); MEAN PLATELET VOLUME 10.4 fL (7.4-11.4); MONOCYTES # (AUTO) 0.6 10^3/uL (0.0-1.0); MONOCYTES % (AUTO) 9.8 %; NEUTROPHILS % (AUTO) 64.8 %; PLT - PLATELET COUNT 172 10^3/uL (130-450); RED CELL DISTRIBUTION WIDTH 12.3 % (12.0-15.0); WHITE BLOOD COUNT 6.1 x10^3/uL (4.8-10.8)
[2020-01-19 05:30] LABS: CALCIUM 8.7 mg/dL (8.5-10.3); CREATININE 1.2 mg/dL (0.6-1.2)
[2020-01-19 05:40] LABS: CHOLESTEROL 71 mg/dL; HDL CHOLESTEROL 35 mg/dL; LDL CHOLESTEROL,CALCULATED 25 mg/dL; LDL/HDL RATIO 0.7 (<3.6); VLDL CHOLESTEROL 11 mg/dL
[2020-01-19] MEDS: OMEGA-3 ACID ETHYL ESTERS 1 GM CAPSULE PO SCH (08:49)
[2020-01-19] MEDS: FAMOTIDINE 20 MG TABLET PO SCH (08:50)
[2020-01-19] MEDS: polyethylene glycoL 3350 17 GM PACKET PO SCH (08:50)
[2020-01-19] MEDS: BRIMONIDINE 0.1% OPHTH DROPS 5 ML RIGHTEYE SCH (08:55)
[2020-01-19] MEDS: HEPARIN 5,000 UNIT/ML VIAL SUBQ SCH (08:57)
[2020-01-19] MEDS: LATANOPROST 0.005% OPHTH DROPS RIGHTEYE SCH (09:00)
[2020-01-19] MEDS ORDERED: METOPROLOL SUCCINATE 25 MG TABLET PO SCH (09:00)
[2020-01-19] MEDS: IPRATROPIUM BROMIDE NAS SCH (09:00)
[2020-01-19] MEDS: SODIUM CHLORIDE 0.9% 1,000 ML IV SCH (11:06)
--- NOTE | 2020-01-19 11:29 | Discharge Plan ---
Discharge Plan Problem Reviewed?: Yes Disposition: Home, Self Care Condition: Stable Diet: Cardiac Activity Restrictions: Activity as Tolerated Shower Restrictions: No (fall precaution) Driving Restrictions: Yes (until you are evaluated by your PCP or lead systems engineer) Assistance Devices: Walker Instruction Topics: Stroke Sx, Stroke Ischemic, Stroke Prepare Home After, Stroke Self Care Health Concerns: stroke and left eye vision field reduction Plan of Treatment: your left eye vision field reduction is slightly better and stable. MRI and CT of your brain indicate right brain infarct and hemorrhagic transformation of the infarct. Per neurologist in [place] recommendation, hold your home Aspirin in one week, then followup CT of brain, and followup neurologist evaluation. advise you followup your scheduled lead systems engineer appointment on 01/29/2020, and you do not drive until you see your PCP or lead systems engineer Care Goals: stabilization and improvement of your medical issue. Assessment: discussed with you the care plan and you understood Additional Instructions or Follow Up instructions: you may followup your PCP in one week, followup CT of brain and followup neurologist evaluation in one week, and followup your lead systems engineer as your schedule. Should your symptoms return or worsen, you may present ER or call 911 for help. Follow-Up Care: Outpatient Rehab - PT, Outpatient Rehab - OT No Smoking: If you smoke, Please STOP! Call for help. Follow-up with: Nacho Downs MD [Primary Care Provider] -
[2020-01-19 11:58] VITALS: BP 134/91
--- NOTE | 2020-01-19 11:59 | DISCHARGE SUMMARY ---
Discharge Summary Admit Date: 01/17/20 Discharge Date: 01/19/20 Discharging Provider: Javier Richmond Primary Care Provider: Dr. Garza Condition at Discharge: Stable Discharge Disposition: 01 Home, Self Care Discharge Facility Name: home - DIAGNOSES Admission Diagnoses: (1) Stroke (2) Hyperlipidemia (3) Hx of coronary artery disease (4) Vision loss of left eye (5) HTN (hypertension) Discharge Diagnoses with Status of Each Condition: (1) Stroke pt's vision is slight better and stable. pt has no another focal neurological deficit. PT/OT evaluated and treated pt, outpt PT/OT was recommended for pt. MRI and CT of your brain indicate right brain infarct and hemorrhagic transfo rmation of the infarct. Per neurologist in [place] recommendation, hold your home Aspirin in one week, then followup CT of brain, and followup neurologist evaluation. advise you followup your scheduled pilot plant supervisor appointment on 01/29/2020, and you do not drive until you see your PCP or pilot plant supervisor (2) Hyperlipidemia stable (3) Hx of coronary artery disease stable (4) Vision field reduction of left eye slight better and stable. it is likely caused by stroke. MRI and CT of your brain indicate right brain infarct and hemorrhagic transformation of the infarct. Per neurologist in [place] recommendation, hold your home Aspirin in one week, then followup CT of brain, and followup neurologist evaluation. advise you followup your scheduled pilot plant supervisor appointment on 01/29/2020, and you do not drive until you see your PCP or pilot plant supervisor (5) HTN (hypertension) stable. (6) CKD improved/stable. advise pt keep hydration. - HPI History of Present Illness: refer from Dr. Smiley's HPI on 01/17/2020 84 yo male who comes in because he was getting dressed this morning and had acute dizziness where he fell over. He said all his limbs felt weak. Two days ago while at home he had acute left vision loss. He was seen roughly 2 weeks ago in the ED for dizziness and was noted to be hypotensive and his metoprolol was discontinued and he was noted to be dehydrated and went home and took some meclizine. He said after that visit he had vomiting. He lives with his who drove him to the hospital today for worsening dizziness. He denies any headaches. He has hx of CAD, but denies any SOB, cough, chest pain. He does have hx of glaucoma and macular degeneration. - HOSPITAL COURSE Hospital Course: pt was admitted for dizziness and left vision field reduction. MRI and CT of you r brain indicate right brain infarct and hemorrhagic transformation of the infarct. pt was consulted with Dr. Rabago neurologist in [place]. all image studies was pushed for Dr. Rabago's review. Dr. Rabago recommended to hold pt's home Aspirin for one week, then followup CT of brain and consult with neurologist. pt report pt's left vision field reduction is slightly better. pt report he has pilot plant supervisor appointment on 01/29/2020. pt has no other focal neurologist deficit. pt has PT/OT evaluation and treatment. pt was recommended to have out- PT/OT. pt had manager social services consult for arrangement of pt's d/c followup care. Pt was advise: do not drive until you see your PCP or pilot plant supervisor. The det ail hospital course is as the below. (1) Stroke pt's vision is slight better and stable. pt has no another focal neurological deficit. PT/OT evaluated and treated pt, outpt PT/OT was recommended for pt. MRI and CT of your brain indicate right brain infarct and hemorrhagic transformation of the infarct. Per neurologist in [place] recommendation, hold your home Aspirin in one week, then followup CT of brain, and followup neurologist evaluation. advise you followup your scheduled pilot plant supervisor appointment on 01/29/2020, and you do not drive until you see your PCP or op hthalmologist (2) Hyperlipidemia stable (3) Hx of coronary artery disease stable (4) Vision field reduction of left eye slight better and stable. pt denies eye pain. it is likely caused by stroke. MRI and CT of your brain indicate right brain infarct and hemorrhagic transformation of the infarct. Per neurologist in [place] recommendation, hold your home Aspirin in one week, then followup CT of brain, and followup neurol ogist evaluation. advise you followup your scheduled pilot plant supervisor appointment on 01/29/2020, and you do not drive until you see your PCP or pilot plant supervisor (5) HTN (hypertension) stable. (6) CKD improved/stable. advise pt keep hydration. - ALLERGIES Allergies/Adverse Reactions: Allergies Allergy/AdvReac Type Severity Reaction Status Date / Time Penicillins Allergy Rash Verified 12/30/19 09:19 Sulfa (Sulfonamide Allergy Rash Verified 12/30/19 09:19 Antibiotics) - MEDICATIONS Home Medications: Ambulatory Orders Medication Instructions Recorded Confirmed [place]-3 Fatty Acids [Fish Oil] 1,000 mg PO DAILY 09/16/16 01/17/20 Amlodipine Besylate [Norvasc] 2.5 mg PO DAILY 12/21/19 01/17/20 Atorvastatin Calcium 40 mg PO QPM 12/21/19 01/17/20 Brimonidine 0.1% Ophth Drops 1 drops RIGHTEYE BID 12/21/19 01/17/20 [Alphagan P 0.1% Ophth Drops] Latanoprost 0.005% Ophth Drops 1 drops RIGHTEYE DAILY 12/21/19 01/17/20 [Xalatan Ophth Drops] Ipratropium [place] 1 spray ANTONIO BID 12/30/19 01/17/20 Metoprolol Succinate 12.5 mg PO DAILY 12/30/19 01/17/20 Nitroglycerin [Nitrostat] 0.4 mg SL Q5MIN PRN 12/30/19 01/17/20 Meclizine [Antivert] 12.5 mg PO BID PRN #10 tablet 12/31/19 01/17/20 - PHYSICAL EXAM AT DISCHARGE General Appearance: positive: No acute distress, Alert. negative: Lethargic Eyes Bilateral: positive: Normal inspection, No lid inflammation, Other (pt has reduced left eye vision field at left low field) ENT: positive: ENT inspection nml, No signs of dehydration. negative: Purulent nasal drainage, Oral lesions, Dry mucous membranes Neck: positive: Nml inspection, Thyroid nml, No JVD, Trachea midline. negative: Thyromegaly, Stiff neck, Tracheal deviation Respiratory: positive: Chest non-tender, No respiratory distress, Breath sounds nml. negative: Wheezes, Rales, Rhonchi Cardiovascular: positive: Regular rate & rhythm, No murmur, No gallop. negative: Irregularly irregular, Extrasystoles, Tachycardia, Bradycardia, JVD present, Systolic murmur, Diastolic murmur Peripheral Pulses: positive: 2+ Abdomen: positive: Non-tender, No organomegaly, Nml bowel sounds, No distention. negative: Tenderness, Guarding, Rebound Back: positive: Nml inspection Skin: positive: Color nml, No rash, Warm, Dry. negative: Cyanosis, Diaphoresis, Pallor Extremities: positive: Non-tender, Full ROM, Nml appearance. negative: Calf tenderness, Elizabeth's sign/cords Neurologic/Psychiatric: positive: Oriented x3, Motor nml, Sensation nml, Mood/affect nml. negative: Weakness, Sensory loss, Facial droop, Slurred/abnml speech, Depressed mood/affect - LABS Result Diagrams: 01/19/20 04:45 01/19/20 04:45 - SEPSIS Current Stage of Sepsis: Ruled out - FOLLOW UP Follow Up: your left eye vision field reduction is slightly better and stable. MRI and CT of your brain indicate right brain infarct and hemorrhagic transformation of the infarct. Per neurologist in [place] recommendation, hold your home Aspirin in one week, then followup CT of brain, and followup neurologist evaluation. advise you followup your scheduled pilot plant supervisor appointment on 01/29/2020, and you do not drive until you see your PCP or pilot plant supervisor. you may followup your PCP in one week, followup CT of brain and followup neurologist evaluation in one week, and followup your pilot plant supervisor as your schedule. Should your symptoms return or worsen, you may present ER or call 911 for help. - TIME SPENT Time Spent in Discharge (Minutes): 40
== END 2020-01-19 12:58 | disposition home or self-care (01) | DRG 64 ==
LOC: ED 12:51 → MS2 16:22
PROVIDERS: ADMIT Family Medicine; ATTEND Nurse Practitioner Gerontology
DX: I63.9 Cerebral infarction, unspecified (principal); I63.341 Cerebral infarction due to thrombosis of right cerebellar artery; I61.8 Other nontraumatic intracerebral hemorrhage; H53.8 Other visual disturbances; I12.9 Hypertensive chronic kidney disease with stage 1 through stage 4 chronic kidney disease, or unspecified chronic kidney disease; N18.9 Chronic kidney disease, unspecified; I25.119 Atherosclerotic heart disease of native coronary artery with unspecified angina pectoris; E78.5 Hyperlipidemia, unspecified; H40.9 Unspecified glaucoma; H35.30 Unspecified macular degeneration; M19.90 Unspecified osteoarthritis, unspecified site; I69.398 Other sequelae of cerebral infarction; Z79.82 Long term (current) use of aspirin; Z85.828 Personal history of other malignant neoplasm of skin
CPT/HCPCS: 36415; 70450; 70544; 70549; 70551; 80048; 80053; 80061; 83690; 85025; 85610; 85651; 86140; 93005; 93308; 97161; 97166; 97530; 99281; 99285; A9270; A9585; 83721

== ENCOUNTER 2020-01-24 09:44 | Outpatient (CLI) | payer MEDICARE, BC ==
--- NOTE | 2020-01-24 20:56 | CT Report ---
Reason: CEREBRAL INFARCT Procedure Date: 01/24/2020 Accession Number: [id number] / [id number] Procedure: CT - HEAD WO CPT Code: Final Report FULL RESULT: EXAM: CT HEAD EXAM DATE: 01/24/2020 10:05 AM. CLINICAL HISTORY: 84-year-old male. CEREBRAL INFARCT. COMPARISON: CT head 01/17/2020 TECHNIQUE: Multiaxial CT images were obtained from the foramen magnum to the vertex. Reformats: Sagittal and coronal. IV contrast: None. In accordance with CT protocol optimization, one or more of the following dose reduction techniques were utilized for this exam: automated exposure control, adjustment of mA and/or KV based on patient size, or use of iterative reconstructive technique. FINDINGS: Parenchyma: Redemonstration recent right parieto-occipital infarction with stable appearing primarily cortical hemorrhagic transformation. Chronic infarction right cerebellar hemisphere. No interval increase in intracranial hemorrhage. No evidence of mass, midline shift, or CT findings of additional acute infarctions. 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 Extraaxial Spaces/ventricles: Moderate diffuse cerebral volume loss with ex vacuo dilatation of the ventricles and sulci.. No subdural or epidural collections identified. No hydrocephalus. Sinuses and orbits: Status post right lens replacement surgery. Imaged paranasal sinuses, orbits, and mastoids show no significant abnormality. Bones: No evidence of fracture or calvarial defect. Other: None. IMPRESSION: 1. Compared to the prior CT head from 01/17/2020, no significant interval change and no new acute intracranial abnormality. 2. Redemonstration recent right parieto-occipital infarction with stable appearing primarily cortical hemorrhagic transformation. 3. Chronic infarction right cerebellar hemisphere. 4. 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 5. Moderate diffuse cerebral volume loss with ex vacuo dilatation of the ventricles and sulci. RADIA
== END 2020-01-24 09:45 | disposition home or self-care (01) ==
LOC: DI 09:44
PROVIDERS: ATTEND Internal Medicine
DX: I63.9 Cerebral infarction, unspecified (principal); I63.89 Other cerebral infarction
CPT/HCPCS: 70450

== ENCOUNTER 2020-03-10 08:14 | Outpatient (CLI) | payer MEDICARE, BC | END 2020-03-10 08:15 | disposition critical access hospital (66) | LOC: EMS 08:14 | PROVIDERS: ATTEND Surgery | DX: R26.89 Other abnormalities of gait and mobility (principal); R20.2 Paresthesia of skin; H53.8 Other visual disturbances; R51 Headache | CPT/HCPCS: A0425; A0429 ==

== ENCOUNTER 2020-03-10 08:25 | Observation (INO) | payer MEDICARE, BC ==
--- NOTE | 2020-03-10 08:26 | ED Physician Documentation ---
PD HPI [facility]OCAL NEURO - Stated complaint Stated Complaint: POSS STROKE - History obtained from History obtained from: Patient, EMS - History of Present Illness Timing - onset: How many hours ago (4 hours ago), Today Timing - duration: Hours Timing - details: Abrupt onset (The patient noted significant ataxia and nearly falling over despite use of his walker when he got up to go to the bathroom at 430 this morning. He states he felt okay last night around 1230. He has been having some episodes of ataxia and vertigo intermittently since a recent stroke in the occipital and posterior circulation about 6 weeks ago. At that time he had been having some dizziness for a week or 2 intermittently and then came in with a profound vertigo for which she was admitted for symptom control. This w as in December. He then came back with symptoms again in the end of January and was found to have a subacute stroke with the mild petechial blood transformation and a CT a and MRA of the neck suggesting possible right vertebral dissection. He was taken off his aspirin supposedly for a week then was to resume it. He misunderstood that and has been off of his aspirin since January. He has had times of dizziness and off balance when he is slightly dehydrated or tired or fatigued like doing hedge trimming last week. However the symptoms have been brief and mild and improved with rest. This morning's is more notable and he has some slight headache posteriorly.) Severity of deficit: Moderate Weakness: No: Face, Hand Numbness: No: Face, Hand Associated symptoms: Headache (mild occipital headache today), Other (has had loss of left lateral visual field since CVA in January.). No: Nausea / vomiting, Syncope, Head injury Contributing factors: positive: Other (he is not on any anitplatelet agents since January). negative: Anticoagulated, Vascular dz, Atrial fibrillation Baseline status: positive: Walker Similar symptoms before: Diagnosis (had posterior CVA in January with dizziness. Has had worse symptoms at times with fatigue (yardwork) or underhydration. He says he went to the [facility] yesterday and did not have much to drink or eat from 11 am until evening when back home.) Review of Systems Constitutional: denies: Fever, Chills Eyes: reports: Loss of vision (left lateral field since January) Nose: denies: Rhinorrhea / runny nose, Congestion Throat: denies: Sore throat Respiratory: denies: Cough GI: reports: Nausea. denies: Abdominal Pain, Vomiting Skin: denies: Rash, Lesions Neurologic: reports: Other (ataxia). denies: Focal weakness, Numbness, Difficulty speaking PD PAST MEDICAL HISTORY - Past Medical History Cardiovascular: Hypertension, High cholesterol, Coronary artery disease, Angina Respiratory: None Neuro: CVA (6 weeks ago) Endocrine/Autoimmune: None GI: GERD : None HEENT: None Psych: None Musculoskeletal: Osteoarthritis Derm: Eczema - Past Surgical History Past Surgical History: Yes General: Appendectomy HEENT: Tonsil/Adenoidectomy Derm: Skin cancer surgery - Present Medications Home Medications: Ambulatory Orders Medication Instructions Recorded Confirmed Amlodipine Besylate [Norvasc] 2.5 mg PO DAILY 12/21/19 03/10/20 Atorvastatin Calcium 40 mg PO QPM 12/21/19 03/10/20 Brimonidine 0.1% Ophth Drops 1 drops RIGHTEYE BID 12/21/19 03/10/20 [Alphagan P 0.1% Ophth Drops] Latanoprost 0.005% Ophth Drops 1 drops RIGHTEYE QPM 12/21/19 03/10/20 [Xalatan Ophth Drops] - Allergies Allergies/Adverse Reactions: Allergies Allergy/AdvReac Type Severity Reaction Status Date / Time Penicillins Allergy Rash Verified 03/10/20 08:59 Sulfa (Sulfonamide Allergy Rash Verified 03/10/20 08:59 Antibiotics) - Social History Does the pt smoke?: No Smoking Status: Former smoker Does the pt drink ETOH?: Yes Does the pt have substance abuse?: No - Immunizations Immunizations are current?: Yes - POLST POLST Status: Full Code PD ED PE NORMAL - Vitals Vital signs reviewed: Yes - General General: Alert and oriented X 3, No acute distress, Well developed/nourished - HEENT HEENT: PERRL, EOMI, Other (left lateral field deficit) - Neck Neck: Supple, no meningeal sign, No adenopathy, No bruit - Cardiac Cardiac: RRR, No murmur - Respiratory Respiratory: Clear bilaterally - Abdomen Abdomen: Soft, Non tender - Derm Derm: Normal color, Warm and dry - Extremities Extremities: No deformity, No tenderness to palpate, Normal ROM s pain, No edema, No calf tenderness / cord - Neuro Neuro: Alert and oriented X 3, No motor deficit, No sensory deficit, Normal speech, Other (he is significantly ataxic, listing to the right and almost falling even with use of walker. ). No: recharger 2-12 intact (normal except visual field deficit) Results - Vitals Vitals: Vital Signs - 24 hr 03/10/20 03/10/20 03/10/20 08:24 09:00 09:30 Temperature 36.2 C L Heart Rate 60 54 L 52 L Respiratory 20 12 11 L Rate Blood Pressure 165/65 H 148/78 H 143/70 H O2 Saturation 96 96 97 03/10/20 10:00 Temperature Heart Rate 57 L Respiratory 17 Rate Blood Pressure 143/70 H O2 Saturation 96 Oxygen O2 Source Room air - Labs Labs: Laboratory Tests 03/10/20 03/10/20 03/10/20 09:03 09:03 09:03 WBC 5.6 RBC 4.34 L Hgb 13.2 L Hct 39.1 L MCV 90.1 MCH 30.4 MCHC 33.8 RDW 12.9 Plt Count 154 MPV 9.9 Neut # (Auto) 4.2 Lymph # (Auto) 0.7 L Ada # (Auto) 0.5 Eos # (Auto) 0.2 Baso # (Auto) 0.0 Absolute Nucleated RBC 0.00 Nucleated RBC % 0.0 PT 13.5 H INR 1.2 APTT 28.7 Sodium 135 Potassium 4.0 Chloride 99 L Carbon Dioxide 29 Anion Gap 7.0 BUN 17 Creatinine 1.2 Estimated GFR (MDRD) 57 L Glucose 109 H Calcium 8.9 Magnesium 2.0 Total Bilirubin 1.0 AST 35 ALT 45 Alkaline Phosphatase 77 Total Protein 6.1 L Albumin 3.7 Globulin 2.4 Albumin/Globulin Ratio 1.5 Lipase 23 - Rads (name of study) head CT, CT-A Radiology: Prelim report reviewed, Discussed with rads (No acute bleeding or swelling. The radiologist said the CT and CTAs appear the same as January without any interval change.), See rad report PD MEDICAL DECISION MAKING - ED course Complexity details: considered differential, d/w patient, d/w [employer] ax consultant (I talked with [facility] about the findings and symptoms. The neurologist feeling is likely a recurrent effect of the previous stroke at times of fatigue or under hydration. He does feel the patient should be back on an antiplatelet agent and should have been on 1 after the 1 week timeframe. The patient had just misunderstood this. We will give him an aspirin here. The neurologist did suggest placing the patient in observation if there is concern for falls or such and at this point he did not recommend an MRI per per se but if the symptoms have not improved with a little bit of time and hydration and such, then consider the idea of having extended the prior stroke.) Departure - Departure Disposition: ED Place in Observation Clinical Impression: Ataxia, Cerebrovascular accident (CVA) involving posterior circulation Condition: Stable Record reviewed to determine appropriate education?: Yes Discharge Date/Time: 03/10/20 11:58
[2020-03-10 09:10] LABS: BASOPHILS % (AUTO) 0.4 %; EOSINOPHILS # (AUTO) 0.2 10^3/uL (0.0-0.7); EOSINOPHILS % (AUTO) 3.1 %; HGB - HEMOGLOBIN 13.2 g/dL (14.0-18.0); LYMPHOCYTES # (AUTO) 0.7 10^3/uL (1.5-3.5); LYMPHOCYTES % (AUTO) 12.4 %; MEAN CORPUSCULAR HEMOGLOBIN 30.4 pg (27.0-31.0); MEAN CORPUSCULAR HGB CONC 33.8 g/dL (32.0-36.0); MEAN CORPUSCULAR VOLUME 90.1 fL (80.0-94.0); MEAN PLATELET VOLUME 9.9 fL (7.4-11.4); MONOCYTES # (AUTO) 0.5 10^3/uL (0.0-1.0); NEUTROPHILS # (AUTO) 4.2 10^3/uL (1.5-6.6); NEUTROPHILS % (AUTO) 74.7 %; PLT - PLATELET COUNT 154 10^3/uL (130-450); RED BLOOD COUNT 4.34 10^6/uL (4.70-6.10); RED CELL DISTRIBUTION WIDTH 12.9 % (12.0-15.0); WHITE BLOOD COUNT 5.6 x10^3/uL (4.8-10.8)
[2020-03-10 09:18] LABS: INR 1.2 (0.8-1.2); PT - PROTHROMBIN TIME 13.5 secs (9.9-12.6)
--- NOTE | 2020-03-10 09:19 | CT Report ---
Reason: some headache; new ataxia this AM Procedure Date: 03/10/2020 Accession Number: [id number] / [id number] Procedure: CT - Head W/O Stroke Protocol CPT Code: Final Report FULL RESULT: PROCEDURE: Head W/O Stroke Protocol INDICATIONS: some headache; new ataxia this AM TECHNIQUE: Noncontrast 4.5 mm thick angled axial sections acquired from the foramen magnum to the vertex. For radiation dose reduction, the following was used: automated exposure control, adjustment of mA and/or kV according to patient size. COMPARISON: Noncontrast head CT 01/24/2020, 01/17/2020, 12/30/2019. FINDINGS: Image quality: Excellent. CSF spaces: Basal cisterns are patent. No extra-axial fluid collections. Ventricles are normal in size and shape. Brain: No midline shift. No intracranial masses or hemorrhage. No new area of hypodensity in a large vascular distribution to suggest acute infarction. Areas of encephalomalacia in the right parietal occipital lobe and right cerebellum from prior infarction. Periventricular hypodensity consistent with chronic microvascular ischemic disease. Skull and face: Calvarium and visualized facial bones are intact, without suspicious lesions. Sinuses: Visualized sinuses and mastoids are clear. IMPRESSION: 1. No acute intracranial abnormality. No acute intracranial hemorrhage. 2. Encephalomalacia in the right parietal occipital lobe and right cerebellum from prior infarct. Results were discussed with Edy Leonardo at 9:15 AM. Reviewed by: Meet Espana MD on 03/10/2020 9:18 AM PDT Approved by: Meet Espana MD on 03/10/2020 9:18 AM PDT Station ID: [id number]
[2020-03-10 09:25] LABS: ALBUMIN 3.7 g/dL (3.2-5.5); ALBUMIN/GLOBULIN RATIO 1.5 (1.0-2.2); CALCIUM 8.9 mg/dL (8.5-10.3); CREATININE 1.2 mg/dL (0.6-1.2); PARTIAL THROMBOPLASTIN TIME 28.7 secs (24.9-33.3); TOTAL PROTEIN 6.1 g/dL (6.7-8.2)
--- NOTE | 2020-03-10 09:32 | CT Report ---
Reason: some headache; new ataxia this AM Procedure Date: 03/10/2020 Accession Number: [id number] / [id number] Procedure: CT - ANGIO NECK W CPT Code: Final Report FULL RESULT: PROCEDURE: ANGIO NECK W INDICATIONS: some headache; new ataxia this AM CONTRAST: IV CONTRAST: Optiray 320 ml: 100 PO CONTRAST: *NO PO CONTRAST TECHNIQUE: After the administration of intravenous contrast, 1.5 mm axial sections acquired from the aortic arch to the [place] of [place]. Coronal 3-D maximum intensity projection (MIP) and/or volume rendering reformats were then performed. For radiation dose reduction, the following was used: automated exposure control, adjustment of mA and/or kV according to patient size. COMPARISON: MRA neck 01/17/2020. FINDINGS: Image quality: Excellent. Carotid system: The great vessels demonstrate a conventional anatomy as they arise from the aortic arch. The origins of the common carotid arteries appear patent. The common carotid arteries demonstrate normal calibers and courses. The bifurcation regions are patent bilaterally. Extensive calcified and noncalcified plaque at the left carotid bulb and mild on the right. The internal carotid arteries demonstrate normal caliber and course. Distal intracranial ICA athetotic calcifications. Posterior circulation: The right vertebral artery origin does not opacify with contrast. The right vertebral artery is occluded. The right vertebral artery partially opacifies distally but is severely attenuated compared to the left. Overall these findings appear similar to the MRA of 01/17/2020. They join to form a normal appearing basilar artery. Soft tissues: Visualized neck soft tissues demonstrate no suspicious abnormalities. The thyroid gland is normal in size. Bones: No suspicious bony lesions. Visualized cervical spine appears normally aligned. IMPRESSION: 1. Chronic essentially occluded right vertebral artery. 2. Extensive atherosclerosis at the left carotid bulb. The estimate of stenosis included in the report of the imaging study was calculated using the NASCET method Reviewed by: Meet Espana MD on 03/10/2020 9:31 AM PDT Approved by: Meet Espana MD on 03/10/2020 9:31 AM PDT Station ID: [id number]
--- NOTE | 2020-03-10 09:32 | CT Report ---
Reason: some headache; new ataxia this AM Procedure Date: 03/10/2020 Accession Number: [id number] / [id number] Procedure: CT - ANGIO HEAD W/WO CPT Code: Final Report FULL RESULT: PROCEDURE: ANGIO HEAD W/WO INDICATIONS: some headache; new ataxia this AM CONTRAST: IV CONTRAST: Optiray 320 ml: 100 PO CONTRAST: *NO PO CONTRAST TECHNIQUE: Precontrast 4.5 mm thick angled axial sections acquired from the foramen magnum to the vertex. After the administration of intravenous contrast, 1 mm thick sections acquired through the [place] of [place]. Postcontrast 4.5 mm thick sections then re-acquired from the foramen magnum to the vertex. 3-dimensional essoxzo-uxabixnfu-qcnwmxjdxr (MIP) and/or volume rendering reformats were acquired of the central intracranial vasculature. For radiation dose reduction, the following was used: automated exposure control, adjustment of mA and/or kV according to patient size. COMPARISON: Same day CTA neck noncontrast head CT, 01/24/2020. FINDINGS: Image quality: Excellent. Anterior circulation: Intracranial internal carotid arteries are normal in size and flow. The flow within the paired anterior cerebral arteries is normal and symmetric. The flow within the middle cerebral arteries is normal and symmetric. The anterior communicating artery is seen. No aneurysms are seen. Posterior circulation: Visualized portions of the vertebral arteries demonstrate normal attenuation of the right vertebral artery, (5/12). This is less apparent on the delayed images. Flow within the posterior cerebral arteries is normal and symmetric. No aneurysms are seen. CSF spaces: Ventricles are normal in size and shape. Basal cisterns are patent. No extra-axial fluid collections. Brain: No midline shift. No intracranial bleeds or masses. Expected encephalomalacia in the right parieto-occipital lobe and right cerebellum from prior infarcts. Skull and face: Calvarium and facial bones appear intact, without suspicious lesions. Sinuses: Visualized sinuses and mastoids are clear. IMPRESSION: 1. Distal right vertebral artery is attenuated. -Please see separately dictated CTA neck. 2. Encephalomalacia in the right parietal occipital and right cerebellum from prior infarcts. Reviewed by: Meet Espana MD on 03/10/2020 9:31 AM PDT Approved by: Meet Espana MD on 03/10/2020 9:31 AM PDT Station ID: [id number]
[2020-03-10] MEDS ORDERED: ASPIRIN CHEW 81 MG TABLET PO STA (10:27)
[2020-03-10] MEDS ORDERED: LACTATED RINGERS 1,000 ML IV STA (10:27)
[2020-03-10] MEDS ORDERED: ACETAMINOPHEN 325 MG TABLET PO PRN (11:27)
[2020-03-10] MEDS ORDERED: SODIUM CHLORIDE FLUSH 0.9% 10 ML SYRINGE IVP PRN (11:27)
[2020-03-10] MEDS ORDERED: ONDANSETRON 4 MG/2 ML VIAL IVP PRN (11:27)
[2020-03-10] MEDS ORDERED: MECLIZINE 12.5 MG TABLET PO PRN (11:29)
[2020-03-10] MEDS ORDERED: NITROGLYCERIN SL 0.4 MG TABLET SL PRN (11:29)
[2020-03-10] MEDS: DEXTROSE 5%-0.9% NACL 1,000 ML IV SCH ×2 (12:43→21:05)
--- NOTE | 2020-03-10 15:37 | PHARMACY PROGRESS NOTE ---
- Best Possible Medication History Admit Date and Time: 03/10/20 1057 Processed by: Pharmacy Medication History completed: Yes Patient Interview: Completed Secondary Source(s): Pharmacy records, Insurance records As the person ultimately responsible for medication therapy, providers are able to order a medication from an existing home medication list in [facility] via the "Reconcile Routine" prior to Confirmation of that medication by unit support representative. Such practice is discouraged except when the physician, in their clinical judgment, deems that a medical need exists for a medication without regard to previous use.
[2020-03-10] MEDS: SODIUM CHLORIDE FLUSH 0.9% 10 ML SYRINGE IVP SCH (16:16)
--- NOTE | 2020-03-10 16:36 | HISTORY & PHYSICAL EXAMINATION ---
DATE OF SERVICE: 03/10/2020 Physician: Jacy Rivero MD HISTORY OF PRESENT ILLNESS: This is an 84-year-old white male with a history of coronary artery disease, hyperlipidemia, hypertension and a stroke with hemorrhagic transformation. This happened 1 month ago. He was hospitalized here, but providers reached out to [facility], and he was advised to stop taking his aspirin for 1 week. Also, in that time period of about 1 month ago, he had presented to the ER with hypotension and was told to stop taking metoprolol, which he did. Somehow, he misunderstood about the aspirin and has stopped taking it for this entire month. About a week ago, he was working outside [employer], felt sudden vertigo and sat down on his lawnmower, which was nearby until this symptom faded. Last night in the middle of the night, he awoke to use the bathroom at approximately 5 in the morning and despite using his walker, he had 4 episodes of stumbling, because he felt that he was listing to the right. He fell on his bed twice and onto the door and also onto a counter top, but never fell to the ground and had no head injury. He presented to the Emergency Room because of these events of listing and unable to walk. In the ER, he also described vertigo. He was tested and still had abnormal gait. He is being placed in observation status to monitor the neurologic abnormality. He did undergo a head CT, which showed the old stroke. No hemorrhage. Dr. Leonardo of the ER reached out to [facility], who advised that he get hydration to improve perfusion to his brain and also that he restart his antiplatelet agent. PAST MEDICAL HISTORY: Hypertension, L-sided vision loss, which is the result of the stroke from 1 month ago, CAD, recurrent ataxia and vertigo. ALLERGIES: PENICILLIN, SULFA. MEDICATIONS 1. Amlodipine 2.5 mg daily. 2. Lipitor 40 mg every night. 3. Alphagan eyedrops. 4. Xalatan eyedrops. He is not on metoprolol any longer and he is not on aspirin any longer, for the past 1 month. FAMILY HISTORY: Noncontributory. SOCIAL HISTORY: Lives with his for whom he is the caregiver, because he is deaf. He has not been able to drive in the last 2-3 months because of various symptoms and neurologic findings. REVIEW OF SYSTEMS: A comprehensive review of systems was performed and the pertinent positives are listed above, the rest are negative. PHYSICAL EXAMINATION GENERAL: Elderly white male. He is in bed with head of bed elevated and in no distress. VITAL SIGNS: Blood pressure 143/70, heart rate 51 in sinus rhythm, room air saturation 97%. HEENT: Unremarkable. There is no facial droop. His eye exam, however, by his report, is that he has left-sided blindness (of both eyes). NECK: No JVD. CHEST: Clear. HEART: Normal heart sounds. ABDOMEN: Soft, nontender. EXTREMITIES: No clubbing, cyanosis, or edema. NEUROLOGIC: The vision abnormality is as listed above. I watched him walk from the bed to the bathroom now and he has a normal gait currently, but is feeling weak, but does not feel vertigo. LABORATORY DATA: Normal electrolytes. Normal BUN and creatinine. Normal liver tests and lipase. White count 5.6, hemoglobin 13.2, platelet count 154. INR 1.2. EKG: Sinus bradycardia at a rate of 53, otherwise within normal limits. IMAGING: He had head CT, head CTA and neck CTA done in the ER today. These showed: No acute intracranial abnormality or hemorrhage. Encephalomalacia in the right parieto-occipital lobe and right cerebellum from the prior infarct. Distal right vertebral artery attenuated, which is essentially occluded and then it reconstitutes. This is similar to findings from the MRA of 01/2020. He has extensive atherosclerosis of the left carotid bulb. IMPRESSION/DIAGNOSES: 1. Ataxia. 2. Dizziness. 3. Vision loss after stroke. 4. History of hypertension. 5. Bradycardia. I suspect the heart rate is why the metoprolol was stopped and not low blood pressure. 6. History of coronary artery disease 7. Hyperlipidemia. PLAN: Place the patient in Observation status on telemetry. Restart his daily aspirin. Hydrate and avoid hypotension, as recommended by [facility]. If symptoms should worsen, then proceed to further evaluation as with an MRI and MRA. Obtain physical therapy and occupational therapy evaluations. Continue with his Amlodipine, statin medication and eyedrops. Remain off Metoprolol due to bradycardia. CODE STATUS: FULL CODE. DEEP VENOUS THROMBOSIS PROPHYLAXIS: SCDs. ATTESTATION: The patient is expected to be discharged or transferred to another facility within 96 hours: Yes. TD: 03/10/2020 16:10 NAVNEET
[2020-03-10] MEDS: BRIMONIDINE 0.1% OPHTH DROPS 5 ML RIGHTEYE SCH (20:59)
[2020-03-10] MEDS: FAMOTIDINE 20 MG TABLET PO SCH (20:59)
[2020-03-10] MEDS ORDERED: ATORVASTATIN 40 MG TABLET PO SCH (21:00)
[2020-03-10] MEDS ORDERED: LATANOPROST 0.005% OPHTH DROPS RIGHTEYE SCH (21:00)
[2020-03-11] MEDS: SODIUM CHLORIDE FLUSH 0.9% 10 ML SYRINGE IVP SCH ×2 (04:54→07:41)
[2020-03-11] MEDS: DEXTROSE 5%-0.9% NACL 1,000 ML IV SCH (06:50)
[2020-03-11] MEDS ORDERED: METOPROLOL SUCCINATE 25 MG TABLET PO SCH (09:00)
[2020-03-11] MEDS ORDERED: amLODIPine 5 MG TABLET PO SCH (09:00)
[2020-03-11] MEDS ORDERED: ASPIRIN EC 325 MG TABLET PO SCH (09:00)
[2020-03-11] MEDS: FAMOTIDINE 20 MG TABLET PO SCH (09:12)
[2020-03-11] MEDS: BRIMONIDINE 0.1% OPHTH DROPS 5 ML RIGHTEYE SCH (09:12)
--- NOTE | 2020-03-11 10:10 | Discharge Plan ---
Discharge Plan Problem Reviewed?: Yes Disposition: Home, Self Care Condition: Stable Diet: Cardiac Activity Restrictions: Activity as Tolerated Shower Restrictions: No Driving Restrictions: Yes (You may not drive until cleared to resume driving, by your PCP or Neurology) Assistance Devices: Walker Health Concerns: You were placed in Observation status because of the recurrence of your abnormal gait, called ataxia. This slowly improved, therefore this may have been a TIA. The Neurologist at [facility] advised that you restart taking adult dose aspirin daily. You should see your PCP or have a Neurologist see you in hospital follow-up. Resume all your other prehospital medications. Plan of Treatment: As above. Care Goals: Improvement in symptoms and stabilization are the goals. Assessment: Patient understands and is agreeable with the plan. No Smoking: If you smoke, Please STOP! Call for help. Follow-up with: Nacho Downs MD [Primary Care Provider] -
--- NOTE | 2020-03-11 10:20 | DISCHARGE SUMMARY ---
Discharge Summary Admit Date: 03/10/20 Discharge Date: 03/11/20 Discharging Provider: Dr Jacy Rivero Primary Care Provider: Dr Nacho Downs Code Status: Attempt Resuscitation Condition at Discharge: Stable Discharge Disposition: 01 Home, Self Care - HPI History of Present Illness: This is an 84-year-old white male with a history of CAD, hypertension, h yperlipidemia and stroke in January 2020 with symptoms of ataxia that resolved and left-sided vision loss that persisted. On CT imaging of the head then, there was hemorrhagic transformation of the stroke and he was told to stop taking his daily aspirin for 1 week, as recommended by [facility] neurology. He inadvertently stopped taking it over the past month. 1 week ago he had sudden vertigo while w orking cutting hedges which passed when he sat down. At this presentation, he awoke with a feeling of "pulling to the left" and while walking with a quad walker, he had 4 episodes of stumbling and falling to the left, twice landing in his bed, once onto a door and the fourth onto a countertop, but not to the floor and with no trauma. He presented to the ER where he had a head CT that showed the old stroke, involving the Right parietal occipital lobe and Right cerebellum, that already had encephalomalacia, but no further hemorrhage. CTA of the head and neck showed a chronically occluded right vertebral artery and significant atherosclerosis of the left carotid bulb, all similar to CTA from 01/17/20. He was "road tested" in the ER with a walker and was still listing to the left. [facility] Neurology was contacted by the ER provider. Neurology advised restarting his antiplatelet agent and assuring that he had no hypotension to cause cerebral hypoperfusion. They advised placing him in O bservation for neuro checks, to see if his symptoms persisted or worsened. He is being admitted to Observation status for a TIA. - HOSPITAL COURSE Hospital Course: 1) TIA Patient was started back on his daily adult-dose aspirin. He received IV hydration to address possible cerebral hypoperfusion from dehydration. Patient appears to get recurrent ataxia without vertigo since his posterior circulation stroke. The symptoms of ataxia improved slowly and by the next morning he was comfortable walking with his walker. He was seen by PT and OT. He was d ischarged home in stable condition. He may NOT drive a vehicle because of vision loss and recurrent vertigo. A form was sent to the [facility]. Consider Neurologist outpatient management, since he gets ataxia, vertigo and has vision loss. 2) Hx HTN Two months ago, he was found to be bradycardic and hypotensive and his Metoprolol was discontinued, he is only on daily Amlodipine 2.5 mg now. Amlodipine may also may need lowering or discontinuation if he runs blood pressures below 140 without any medications. 3) History of stroke with left-sided vision loss. This was stable during the current admission. His aspirin was resumed since there were no signs of hemorrhage on brain CT scan. 4) Hx of CAD He is on Lipitor, on no beta-stephanie because of bradycardia, and now back on a daily aspirin. 5) Hyperlipidemia His statin was continued while here. - ALLERGIES Allergies/Adverse Reactions: Allergies Allergy/AdvReac Type Severity Reaction Status Date / Time Penicillins Allergy Rash Verified 03/10/20 08:59 Sulfa (Sulfonamide Allergy Rash Verified 03/10/20 08:59 Antibiotics) - MEDICATIONS Home Medications: Ambulatory Orders Medication Instructions Recorded Confirmed Amlodipine Besylate [Norvasc] 2.5 mg PO DAILY 12/21/19 03/10/20 Atorvastatin Calcium 40 mg PO QPM 12/21/19 03/10/20 Brimonidine 0.1% Ophth Drops 1 drops RIGHTEYE BID 12/21/19 03/10/20 [Alphagan P 0.1% Ophth Drops] Latanoprost 0.005% Ophth Drops 1 drops RIGHTEYE QPM 12/21/19 03/10/20 [Xalatan Ophth Drops] Aspirin EC [Ecotrin] 325 mg PO DAILY tablet 03/11/20 - PHYSICAL EXAM AT DISCHARGE General Appearance: positive: No acute distress, Alert Eyes Bilateral: positive: Normal inspection, Other (L sided vision loss.) Neck: positive: Nml inspection, No JVD Respiratory: positive: No respiratory distress Cardiovascular: positive: Regular rate & rhythm Abdomen: positive: Non-tender, No distention Skin: positive: Color nml Extremities: positive: No pedal edema Neurologic/Psychiatric: positive: Other (Left-sided vision loss. Otherwise grossly normal.) - LABS Result Diagrams: 03/10/20 09:03 03/10/20 09:03 - DIAGNOSTIC IMAGING Diagnostic Imaging Results: Final report reviewed - FOLLOW UP Follow Up: See PCP and/or Neurology in routine follow-up.
[2020-03-11 12:51] VITALS: BP 142/62
== END 2020-03-11 11:30 | disposition home or self-care (01) ==
LOC: EDBD → EDUNIT# → ED 08:25 → MS2 10:57
PROVIDERS: ADMIT Internal Medicine; ATTEND Internal Medicine
DX: G45.9 Transient cerebral ischemic attack, unspecified (principal); I10 Essential (primary) hypertension; E78.5 Hyperlipidemia, unspecified; I69.312 Visuospatial deficit and spatial neglect following cerebral infarction; I69.398 Other sequelae of cerebral infarction; I65.01 Occlusion and stenosis of right vertebral artery; I65.22 Occlusion and stenosis of left carotid artery; I25.10 Atherosclerotic heart disease of native coronary artery without angina pectoris
CPT/HCPCS: 36415; 70450; 70496; 70498; 80053; 83690; 83735; 85025; 85610; 85730; 93005; 96361; 96365; 96366; 97161; 97166; 99284; 99285; A9270; G0378; J7120

== ENCOUNTER 2020-04-16 11:19 | Outpatient (CLI) | payer MEDICARE, BC | END 2020-04-16 11:20 | disposition critical access hospital (66) | LOC: EMS 11:19 | PROVIDERS: ATTEND Surgery | DX: R53.1 Weakness (principal); R20.0 Anesthesia of skin; R51 Headache; R29.810 Facial weakness | CPT/HCPCS: A0425; A0427 ==